=== PATIENT | male | born 1935 | race Caucasian/White ===

== ENCOUNTER 2018-07-02 17:33 | Observation (INO) ==
[2018-07-02] MEDS ORDERED: Ondansetron 4 MG/2 ML VIAL IVP PRN (20:31)
[2018-07-02] MEDS: *HR* Morphine Soln 10 MG/5 ML UDC PO PRN (22:10)
[2018-07-02] MEDS: 0.9 % Sodium Chloride 1,000 ML IVC SCH (22:12)
[2018-07-03] MEDS: cefOXitin 2,000 MG in Water for inj. (sterile) 20 ML 20 ML IVP SCH ×2 (00:13→08:00)
[2018-07-03] MEDS ORDERED: OXYCODONE Oral CONC 10 MG/0.5 ML ORAL.SYG SL PRN ×2 (00:29→13:52)
[2018-07-03] MEDS ORDERED: *HR* Metoprolol 5 MG/5 ML VIAL IVP ONE (00:30)
[2018-07-03] MEDS: *HR* Morphine Soln 10 MG/5 ML UDC PO PRN ×2 (02:14→06:48)
[2018-07-03 06:13] LABS: Basophils # 0.1 K/mcL (0.0-0.2); Basophils % 0.7 %; Eosinophils # 0.4 K/mcL (0.0-0.6); Eosinophils % 5.4 %; Hematocrit 42.2 % (37.5-50.1); Immature Granulocytes % 0.4 % (0-4); Lymphocytes % 26.1 %; Mean Corpuscular HGB Conc 33.2 g/dL (31.6-35.5); Mean Corpuscular Hemoglobin 28.3 pg (28.0-33.3); Mean Corpuscular Volume 85.4 fL (83.0-100.0); Mean Platelet Volume 8.8 fL (9.4-12.4); Monocytes # 0.8 K/mcL (0.0-1.3); Monocytes % 10.9 %; Neutrophils # 4.2 K/mcL (1.6-8.9); Platelet Count 227 K/mcL (140-400); Red Blood Count 4.94 M/mcL (4.19-5.50); Red Cell Distribution Width 14.9 % (11.5-14.5); Segmented Neutrophils % 56.5 %
[2018-07-03] MEDS: 0.9 % Sodium Chloride 1,000 ML IVC SCH ×2 (06:13→14:42)
[2018-07-03 06:33] LABS: Albumin 3.7 g/dL (3.5-5.7); Albumin/Globulin Ratio 1.7 (1.1-2.2); Bilirubin,Direct 0.1 mg/dL (0.0-0.2); Bilirubin,Total 1.1 mg/dL (0.3-1.0); Globulin 2.2 g/dL (2.4-3.5); Total Protein 5.9 g/dL (6.4-8.9)
--- NOTE | 2018-07-03 08:46 | General Surg History&Physical ---
<Roma Delatorre David - Last Filed: 07/03/18 11:59> Date of Encounter: 07/03/18 Assessment and Plan (1) Symptomatic cholelithiasis Current Visit: Yes Status: Acute The assessment and plan as outlined above was discussed with the patient and/or family members who expressed understanding and agreement. All questions were answered. patient wiht continued complaints of RUQ pain with radiation. Was discussed to see Dr Cornell on Thursday versus have gallbladder removed due to continued symptoms and continue with hiatal hernia repair with Dr Cornell in future. He would like to have gallbladder removed this weekend. npo cefoxitin prn pain control npo ivf hydration plan OR in next 24 hrs (2) HTN (hypertension) Current Visit: Yes Status: Acute The assessment and plan as outlined above was discussed with the patient and/or family members who expressed understanding and agreement. All questions were answered. continue home medication prn hydralazine Qualifiers: Hypertension type: essential hypertension Qualified Code(s): I10 - Essential (primary) hypertension History of Present Illness HPI: Mr. Mansfield is a 83 year old male with symptomatic cholelithiasis for several weeks. He has seen Dr Cornell as outpatient and was planning on having a cholecystectomy and hiatal hernia repair. He has been to the hospital three times in the last week due to his pain. His pain is sharp and across his upper abdomen and into his right side into his right back. He has no nausea or emesis associate with it, he has no diarrhea but is having constipation. He sometimes has worsening symptoms with food. Past Med Surg Social Fam HX - Past Medical History Source: patient - Social History Occupational status: retired Medications and Allergies Albuterol Sulfate [Albuterol Inhaler] 2 puff IH QID 01/01/18 [History] Aspirin [Adult Aspirin Regimen] 81 mg PO DAILY 01/01/18 [History] Calcium Carbonate [Calcium] 500 mg PO TID 01/01/18 [History] Cetirizine HCl [Zyrtec] 10 mg PO DAILY 01/01/18 [History] Cholecalciferol (Vitamin D3) [Vitamin D] 2,000 unit PO DAILY 01/01/18 [History] Esomeprazole Magnesium [Nexium] 40 mg PO DAILY 01/01/18 [History] Ezetimibe/Simvastatin [Vytorin 10-80 mg Tablet] 1 each PO DAILY 01/01/18 [ History] Ibandronate Sodium [Boniva] 150 mg PO QMONTH 01/01/18 [History] Nitroglycerin [Nitrostat] 0.4 mg SL PRN PRN 01/01/18 [History] Magnesium Oxide [Magnesium] 400 mg PO DAILY 06/27/18 [History] Metoclopramide [Reglan] 10 mg PO Q6HR #30 tablet 06/27/18 [Rx] Metoprolol Succinate/Hctz [Metoprolol ER-Hctz 25-12.5 mg] 1 each PO DAILY [History] Omeprazole [PriLOSEC] 20 mg PO BIDAC #30 cap 06/27/18 [Rx] Potassium Chloride [Klor-Con 10] 10 meq PO BID 06/27/18 [History] Tiotropium [Spiriva] 18 mcg IH 0700 06/27/18 [History] HYDROcodone/Acet 5/325 mg [[place] 5-325 mg] 1 tab PO Q6H PRN 5 Days #20 tab 07/01 [Rx] 3 Allergy/AdvReac Type Severity Reaction Status Date / Time No Known Allergies Allergy Verified 07/02/18 16:29 Review of Systems All systems PM: The remainder of the systems were reviewed and are negative General Surgery Exam Initial Vital Signs Temp Pulse Resp BP Pulse Ox 97.8 F 79 16 167/71 97 07/02/18 20:05 07/02/18 20:05 07/02/18 20:05 07/02/18 20:05 07/02/18 20:05 - General physical appearance well developed, no distress, moderate pain - Eyes PERRL, normal ocular movement - ENT normal mucosa, normocephalic - Neck trachea midline - Respiratory normal expansion, clear to auscultation - Cardiovascular Cardiovascular exam: Present: RRR - Abdomen Abdomen general surgery: Present: bowel sounds present, soft, tender. Absent: distended, guarding, rebound Abdominal Tenderness: Present: RUQ - Integumentary Integumentary general surgery: Present: warm and dry, no abnormal pigmentation - Neurologic Present: CN 2-12 grossly intact - Musculoskeletal Present: normal gait, normal posture - Psychiatric Psychiatric general surgery: Present: A&Ox3, speech is normal Results - Labs 07/03/18 05:58 Abnormal lab results RDW 14.9 % (11.5-14.5) H 07/03/18 05:58 MPV 8.8 fL (9.4-12.4) L 07/03/18 05:58 Total Bilirubin 1.1 mg/dL (0.3-1.0) H 07/03/18 05:58 B-Natriuretic Peptide 136 pg/mL (Less than 100) H 07/03/18 05:58 Serum Total Protein 5.9 g/dL (6.4-8.9) L 07/03/18 05:58 Globulin 2.2 g/dL (2.4-3.5) L 07/03/18 05:58 Diabetes panel 07/03/18 Range/Units 05:58 AST 19 (13-39) Units/L ALT 10 (7-52) Units/L Alkaline Phosphatase 59 (34-104) Units/L Albumin 3.7 (3.5-5.7) g/dL Calcium panel 07/03/18 Range/Units 05:58 Albumin 3.7 (3.5-5.7) g/dL Adrenal panel 07/03/18 Range/Units 05:58 Total Bilirubin 1.1 H (0.3-1.0) mg/dL AST 19 (13-39) Units/L ALT 10 (7-52) Units/L Alkaline Phosphatase 59 (34-104) Units/L Albumin 3.7 (3.5-5.7) g/dL All other labs normal. - Imaging CT scan - abdomen: report reviewed, image reviewed CT scan - pelvis: report reviewed, image reviewed - Attending Attestation I examined this patient and my medical decision-making was reviewed with the Resident Physician. I agree with the documented findings, disposition and treatment plan as described except to the extent set forth below. <Regla Candelaria - Last Filed: 07/03/18 12:09> Date of Encounter: 07/03/18 Time of Encounter: 08:43 Assessment and Plan (1) Cholelithiases Current Visit: Yes Status: Acute Previous ED visit with ADB/Pelvis CT CT/CT abd pelvis wo no iv no oral IMPRESSION: 1. No acute intra- abdominal process identified. 2. Cholelithiasis. 3. Moderate to large hiatal hernia. 4. Moderate atherosclerotic disease. D/ / Neri Wall MD / Neri Wall MD XR/XR abdomen 2V IMPRESSION: Cholelithiasis with a single large gallstone. Moderate sized hiatal hernia. Mild to moderate stool load. D/ / Loco Sommers MD / Loco Sommers MD Cholescystectomy today, hiatal hernia will need repaired at a seperate time. Discussed with patient the option to wait until Thursday to see if Dr. Cornell could do both at once but patient would like gallbladder out now and is ok with second surgery later. The assessment and plan as outlined above was discussed with the patient and/or family members who expressed understanding and agreement. All questions were answered. Qualifiers: Cholelithiasis location: gallbladder Cholecystitis presence: without cholecystitis Biliary obstruction: without biliary obstruction Qualified Code(s): K80.20 - Calculus of gallbladder without cholecystitis without obstruction History of Present Illness Chief complaint: Abdominal Pain HPI: Mr. Mansfield is a 83 year old male who presented to [place] ED with uncontrolled abdominal pain. HE had been previously seen on June 23 with large gallstone and moderate to large hiatal hernia. He had been scheduled for surgery on July 14 for cholecystectomy and hiatal hernia repair. He has persistent pain even with the use of Narco, states his pain was not helped by tylenol or ibuprophen but two aspirin did help some. HE states he has not had a bowel movement in 3 days and has had nausea/vomiting intermittently for the last few days. He denies any fever or chills. THis all began about 2 weeks ago, the pain is constant and sharp but the pain medications are helping now. When it is bad he says it is sharp and stabbing. THe pain goes across his chest and radiates to his back. Past Med Surg Social Fam HX - Past Medical History Medical history: asthma, COPD, hyperlipidemia, hypertension, myocardial infarction, other Additional medical history: prostate problems Psychiatric history: no psych history - Past Surgical History Additional surgical history: right foot surgery, prostate reduction - Social History Smoking Status: Former smoker Smokeless Tobacco Status: No Alcohol use: rarely Drug use: none Review of Systems All systems PM: The remainder of the systems were reviewed and are negative - Constitutional as per HPI - Cardiovascular chest pain (states this pain is all darci way across his chest and wraps around to his back which he associates with his hiatal hernia and gallstones. ), no diaphoresis, no irregular heart rhythm, no radiating jaw, neck or arm pain - Respiratory no cough, no dyspnea on exertion, no chest congestion - Gastrointestinal constipation, nausea, vomiting, no diarrhea - Genitourinary no urinary frequency, no urinary hesitancy, no urinary incontinence General Surgery Exam Initial Vital Signs Temp Pulse Resp BP Pulse Ox 97.8 F 79 16 167/71 97 07/02/18 20:05 07/02/18 20:05 07/02/18 20:05 07/02/18 20:05 07/02/18 20:05 - General physical appearance well developed, well nourished, moderate distress - ENT normal pinna, normal nares, normal mucosa - Neck no masses, trachea midline, no lymphadectomy - Respiratory normal expansion, normal respiratory effort, clear to auscultation - Cardiovascular Cardiovascular exam: Present: RRR, no murmurs/rubs/gallops - Abdomen Abdomen general surgery: Present: bowel sounds present, tender Abdominal Tenderness: Present: RUQ, LUQ - Musculoskeletal Present: normal posture - Psychiatric Psychiatric general surgery: Present: A&Ox3 Results - Labs 07/03/18 05:58 Abnormal lab results RDW 14.9 % (11.5-14.5) H 07/03/18 05:58 MPV 8.8 fL (9.4-12.4) L 07/03/18 05:58 Total Bilirubin 1.1 mg/dL (0.3-1.0) H 07/03/18 05:58 B-Natriuretic Peptide 136 pg/mL (Less than 100) H 07/03/18 05:58 Serum Total Protein 5.9 g/dL (6.4-8.9) L 07/03/18 05:58 Globulin 2.2 g/dL (2.4-3.5) L 07/03/18 05:58 Diabetes panel 07/03/18 Range/Units 05:58 AST 19 (13-39) Units/L ALT 10 (7-52) Units/L Alkaline Phosphatase 59 (34-104) Units/L Albumin 3.7 (3.5-5.7) g/dL Calcium panel 07/03/18 Range/Units 05:58 Albumin 3.7 (3.5-5.7) g/dL Adrenal panel 07/03/18 Range/Units 05:58 Total Bilirubin 1.1 H (0.3-1.0) mg/dL AST 19 (13-39) Units/L ALT 10 (7-52) Units/L Alkaline Phosphatase 59 (34-104) Units/L Albumin 3.7 (3.5-5.7) g/dL All other labs normal.
[2018-07-03] MEDS ORDERED: Loratadine 10 MG TABLET PO SCH (09:00)
[2018-07-03] MEDS ORDERED: hydroCHLOROthiazide 25 MG TABLET PO SCH (09:00)
[2018-07-03] MEDS ORDERED: 0.9 % Sodium Chloride 1,000 ML IVC SCH (09:15)
[2018-07-03] MEDS ORDERED: Tiotropium 18 MCG inhalation IH SCH (10:00)
--- NOTE | 2018-07-03 10:37 | Anesthesia Evaluation PreOp ---
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 Other Medical History: GERD Anesthesia History: No Prior Anesthetic Complications, Past Anesthesia Alcohol Use: rarely Drug use: none Medications and Allergies Albuterol Sulfate [Albuterol Inhaler] 2 puff IH QID 01/01/18 [History] Aspirin [Adult Aspirin Regimen] 81 mg PO DAILY 01/01/18 [History] Calcium Carbonate [Calcium] 500 mg PO TID 01/01/18 [History] Cetirizine HCl [Zyrtec] 10 mg PO DAILY 01/01/18 [History] Cholecalciferol (Vitamin D3) [Vitamin D] 2,000 unit PO DAILY 01/01/18 [History] Esomeprazole Magnesium [Nexium] 40 mg PO DAILY 01/01/18 [History] Ezetimibe/Simvastatin [Vytorin 10-80 mg Tablet] 1 each PO DAILY 01/01/18 [ History] Ibandronate Sodium [Boniva] 150 mg PO HS 01/01/18 [History] Nitroglycerin [Nitrostat] 0.4 mg SL PRN PRN 01/01/18 [History] Acetylcysteine [Nac] 500 mg PO DAILY 06/27/18 [History] Magnesium Oxide [Magnesium] 400 mg PO DAILY 06/27/18 [History] Metoclopramide [Reglan] 10 mg PO Q6HR #30 tablet 06/27/18 [Rx] Metoprolol Succinate/Hctz [Metoprolol ER-Hctz 25-12.5 mg] 1 each PO DAILY [History] Omeprazole [PriLOSEC] 20 mg PO BIDAC #30 cap 06/27/18 [Rx] Potassium Chloride [Klor-Con 10] 10 meq PO BID 06/27/18 [History] Tiotropium [Spiriva] 18 mcg IH 0700 06/27/18 [History] HYDROcodone/Acet 5/325 mg [[place] 5-325 mg] 1 tab PO Q6H PRN 5 Days #20 tab 07/01 [Rx] 3 Allergy/AdvReac Type Severity Reaction Status Date / Time No Known Allergies Allergy Verified 07/02/18 16:29 - Meds/Allergy Pre-op Review Medications Reviewed: Yes Allergies Reviewed: Yes Beta Blockers on Current Med List: Yes If Beta Blockers taken, Date/Time (Last Dose taken): 07/03/2018 at 0937 Anesthesia Results - Labs 07/03/18 05:58 - Imaging EKG: report reviewed (06/30/2018 SINUS RHYTHM RIGHT BUNDLE BRANCH BLOCK) Anesthesia Exam Vital Signs/O2 Sat/Glucose, Most Recent Temp Pulse Resp BP Pulse Ox 98.0 F 84 15 183/95 97 07/03/18 05:22 07/03/18 05:22 07/03/18 05:22 07/03/18 05:22 07/03/18 05:22 Blood Glucose* 90 Height: 6'/1.83m Weight: 178 lbs/81 kg NPO (# of Hours): 8 Pain Scale: 0 Pain Scale Used: Numeric (1 - 10) - HEENT Pupil (Motor): EOMI Mallampati: III Teeth: Poor dentition Oral Opening: Greater than 3 - LOCOMOTIVE CRANE OPERATOR HELPER LOC: Oriented LOCOMOTIVE CRANE OPERATOR HELPER Motor: Normal RUE, Normal LUE, Normal RLE, Normal LLE, Normal Face LOCOMOTIVE CRANE OPERATOR HELPER Sensory: Normal: RUE, LUE, RLE, LLE, Face - Cardiac Rhythm: Regular Murmur: None - Pulmonary Breath Sounds: bilateral Clear Respiratory Effort: Symmetrical Anesthesia Assess/Plan ASA Score: 3 Modified Nichelle Scale for Level of Consciousness: Cooperative, oriented, and tranquil Anesthetic Plan: General Monitoring Plan: Standard Monitors Recovery Plan: PACU
[2018-07-03] MEDS ORDERED: Isovue-300 50 ML VIAL IVP ONE (10:51)
[2018-07-03] MEDS ORDERED: Ringers Solution, Lactated 1,000 ML IVC SCH (11:30)
[2018-07-03] MEDS ORDERED: Albuterol 2.5 MG/3 ML NEBULIZER ONE (11:34)
[2018-07-03] MEDS ORDERED: *HR* FentaNYL (PF) 100 MCG/2 ML VIAL ONE ×2 (12:07→12:30)
[2018-07-03] MEDS ORDERED: *HR* Succinylcholine 200 MG/10 ML VIAL IVP ONE (12:07)
[2018-07-03] MEDS ORDERED: Lidocaine -MPF 2% 2 ML VIAL ONE (12:07)
[2018-07-03] MEDS ORDERED: *HR* Rocuronium Bromide 50 MG/5 ML VIAL ONE (12:07)
[2018-07-03] MEDS ORDERED: *HR* Propofol 200 MG/20 ML VIAL IVP ONE (12:07)
[2018-07-03] MEDS ORDERED: Dexamethasone 4 MG/ML VIAL ONE (12:08)
[2018-07-03] MEDS ORDERED: Ondansetron 4 MG/2 ML VIAL ONE (12:08)
[2018-07-03] MEDS ORDERED: EPHEDrine 50 MG/ML VIAL ONE (12:09)
[2018-07-03] MEDS ORDERED: *HR* Morphine 2 MG/ML SYRINGE IVP PRN (12:14)
[2018-07-03] MEDS ORDERED: Acetaminophen IV 1,000 MG/100 ML INFUS..BTL IVPB ONE (12:14)
[2018-07-03] MEDS ORDERED: Ondansetron 4 MG/2 ML VIAL IVP ONE (12:14)
[2018-07-03] MEDS ORDERED: *HR* Promethazine 25 MG/ML VIAL IVP PRN (12:14)
[2018-07-03] MEDS ORDERED: Neostigmine Methylsulfate 3 MG/3 ML SYRINGE ONE (12:30)
--- NOTE | 2018-07-03 12:56 | Discharge Summary ---
Orders not resulted at time of discharge: Pending orders 07/03/18 XR cholangiogram operative [XR] Routine 07/03/18 05:00 ECG 12 lead ECG [ECG] Routine Date of Encounter: 07/04/18 Time of Encounter: 12:00 - Discharge Diagnosis (1) Symptomatic cholelithiasis Priority: Secondary Status: Acute (2) HTN (hypertension) Priority: Secondary Status: Acute Qualifiers: Hypertension type: essential hypertension Qualified Code(s): I10 - Essential (primary) hypertension (3) Acute cholecystitis Priority: Primary Status: Acute General Surgery Exam Initial Vital Signs Temp Pulse Resp BP Pulse Ox 97.8 F 79 16 167/71 97 07/02/18 20:05 07/02/18 20:05 07/02/18 20:05 07/02/18 20:05 07/02/18 20:05 - General physical appearance well developed, no distress - Eyes PERRL, normal ocular movement - ENT normal mucosa, normocephalic - Neck trachea midline - Respiratory normal expansion, clear to auscultation - Cardiovascular Cardiovascular exam: Present: RRR - Abdomen Abdomen general surgery: Present: bowel sounds present, soft, tender ( appropriate post op tenderness). Absent: guarding, rebound - Incision Incision: Present: clean and dry, intact - Integumentary Integumentary general surgery: Present: warm and dry, no abnormal pigmentation - Neurologic Present: CN 2-12 grossly intact - Musculoskeletal Present: normal gait, normal posture - Psychiatric Psychiatric general surgery: Present: A&Ox3, speech is normal - Hospital Course Hospital course: Mr. Mansfield is a 83 year old male who had been having symptomatic cholelithiasis for several weeks. Patient had been in the ER 3 times in the last week. He presented with continued and persistent epigastric right upper quadrant pain which radiated to his back and shoulder. He elected to have a laparoscopic cholecystectomy this week and with myself. He is planning on having a hiatal hernia repair with Dr. Pruett in the future. Patient actually had an acute cholecystitis with significant edema of the gallbladder wall. He underwent an uncomplicated laparoscopic cholecystectomy on 2017. He was started on a clear diet which she tolerated. Pain was controlled with by mouth medication. He was discharged home in stable condition. - Time Spent with Patient Total time spent providing and/or coordinating discharge services: - Discharge Medications Prescriptions: OxyCODONE/APAP 5/325 [Percocet 5/325 MG] 1 each PO Q6HR PRN 6 Days #25 tablet PRN Reason: Pain Docusate [Colace] 100 mg PO BID #30 capsule Home Medications: Albuterol Sulfate [Albuterol Inhaler] 2 puff IH QID 01/01/18 [History] Aspirin [Adult Aspirin Regimen] 81 mg PO DAILY 01/01/18 [History] Calcium Carbonate [Calcium] 500 mg PO TID 01/01/18 [History] Cetirizine HCl [Zyrtec] 10 mg PO DAILY 01/01/18 [History] Cholecalciferol (Vitamin D3) [Vitamin D3] 2,000 unit PO DAILY 01/01/18 [History] Esomeprazole Magnesium [Nexium] 40 mg PO DAILY 01/01/18 [History] Ezetimibe/Simvastatin [Vytorin 10-80 mg Tablet] 1 each PO DAILY 01/01/18 [ History] Ibandronate Sodium [Boniva] 150 mg PO QMONTH 01/01/18 [History] Nitroglycerin [Nitrostat] 0.4 mg SL PRN PRN 01/01/18 [History] Magnesium Oxide [Magnesium] 400 mg PO DAILY 06/27/18 [History] Metoclopramide [Reglan] 10 mg PO Q6HR #30 tablet 06/27/18 [Rx] Metoprolol Succinate/Hctz [Metoprolol ER-Hctz 25-12.5 mg] 1 each PO DAILY [History] Omeprazole [PriLOSEC] 20 mg PO BIDAC #30 cap 06/27/18 [Rx] Potassium Chloride [Klor-Con 10] 10 meq PO BID 06/27/18 [History] Tiotropium [Spiriva] 18 mcg IH 0700 06/27/18 [History] HYDROcodone/Acet 5/325 mg [[place] 5-325 mg] 1 tab PO Q6H PRN 5 Days #20 tab 07/01 [Rx] Docusate [Colace] 100 mg PO BID #30 capsule 07/03/18 [Rx] OxyCODONE/APAP 5/325 [Percocet 5/325 MG] 1 each PO Q6HR PRN 6 Days #25 tablet [Rx] Allergies/Adverse Reactions: 3 Allergy/AdvReac Type Severity Reaction Status Date / Time No Known Allergies Allergy Verified 07/02/18 16:29 Date of admission: 07/02/18 19:39 Primary care physician: Pushpa Gambino MD Discharging clinician: Roma Delatorre Anticipated date of discharge: 07/04/18 Labs on day of discharge: Labs from last 24 hours 07/03/18 07/03/18 07/03/18 05:58 05:58 05:58 WBC 7.5 RBC 4.94 Hgb 14.0 Hct 42.2 MCV 85.4 MCH 28.3 MCHC 33.2 RDW 14.9 H Plt Count 227 MPV 8.8 L Immature Gran % 0.4 Seg Neutrophils % 56.5 Lymphocytes % 26.1 Monocytes % 10.9 Eosinophils % 5.4 Basophils % 0.7 Neutrophils # 4.2 Lymphocytes # 2.0 Monocytes # 0.8 Eosinophils # 0.4 Basophils # 0.1 POC Glucose Total Bilirubin 1.1 H Direct Bilirubin 0.1 Indirect Bilirubin 1.0 AST 19 ALT 10 Alkaline Phosphatase 59 B-Natriuretic Peptide 136 H Serum Total Protein 5.9 L Albumin 3.7 Globulin 2.2 L Albumin/Globulin Ratio 1.7 07/03/18 05:09 WBC RBC Hgb Hct MCV MCH MCHC RDW Plt Count MPV Immature Gran % Seg Neutrophils % Lymphocytes % Monocytes % Eosinophils % Basophils % Neutrophils # Lymphocytes # Monocytes # Eosinophils # Basophils # POC Glucose 90 Total Bilirubin Direct Bilirubin Indirect Bilirubin AST ALT Alkaline Phosphatase B-Natriuretic Peptide Serum Total Protein Albumin Globulin Albumin/Globulin Ratio - Patient Status Disposition: Home, Self-Care Condition: Good Overall status at discharge: patient is progressing back to baseline - Discharge Instructions Instructions: Laparoscopic Cholecystectomy (DC) Follow Up With: Pushpa Gambino MD [Primary Care Provider] - Roma Delatorre MD [Partnered Physician] - (2 week post op check) Additional Instructions: No lifting more than 20 pounds for 2 weeks. Okay to take a shower in 24 hours. No tub baths or pools for 1 week. Okay to ride in the car wearing a seatbelt and climb steps. No driving until off narcotics for 24 hours and able to react safely Remove Steri-Strips in 1 week Do not take pain medicine/narcotics on an empty stomach it will likely cause nausea and possibly vomiting. If pain medication is too strong okay to break in half - Diet and Activity Activity: increase activity as tolerated Diet: advance to your usual diet
--- NOTE | 2018-07-03 13:41 | Anesthesia Evaluation Post Op ---
Date of Encounter: 07/03/18 Time of Encounter: 13:40 - Vital Signs Vital Signs: Vital Signs/O2 Sat, Most Current Temp Pulse Resp BP Pulse Ox 97.6 F 83 16 150/72 96 07/03/18 13:31 07/03/18 13:31 07/03/18 13:31 07/03/18 13:31 07/03/18 13:31 - Lungs Lungs: Clear Ascult./Percussion - Airway Airway: Non-obstructed - Cardiovascular Regular Rate - Mental Status Mental Status: Alert & Oriented, Answers Appropriately - Pain Pain Scale: 3 Pain Scale used: Numeric (1 - 10) - Nausea Vomiting Nausea Vomiting: Not Present - Hydration Hydration: NPO, Has not voided - Discharge PostOp Status: Transfer Patient to floor
[2018-07-03] MEDS ORDERED: Ondansetron 4 MG/2 ML VIAL IVP PRN (13:52)
[2018-07-03] MEDS ORDERED: *HR* OxyCODONE/APAP 5/325 TABLET PO PRN (13:52)
--- NOTE | 2018-07-03 16:01 | Operative Note ---
Date of procedure: 07/03/18 Pre-op diagnosis: symptomatic cholelithiasis Post-op diagnosis: other (Acute cholecystitis) Procedure: Laparoscopic cholecystectomy Complications: none immediate Anesthesia: GETA, local Local Anesthetics: 0.5% Sensorcaine HCL SubQ (cc) Surgeon: Roma Delatorre Was there an special education teaching assistant present: Yes Cardiopulmonary Specialist: Brooke Ramirez Estimated blood loss (cc): 5 Specimen: gallbladder and contents Condition: stable Disposition: PACU Procedure in Detail: The patient was brought into the operating suite and placed supine on the operating table. Sign-in was performed and everyone was in agreement. Anesthesia was induced and patient was endotracheally intubated by anesthesia without incident and they also placed an OG tube. The abdomen was prepped and draped in the usual sterile fashion. A timeout was performed again everyone was in agreement. A supraumbilical incision was made through the skin into the subcutaneous tissue with an 11 blade. Towel clamps were placed on either side of the umbilicus for retraction. S retractors were used to dissect down to the anterior abdominal wall linea alba fascia. A Veress needle was placed through this incision and a water drop test confirmed placement and the abdomen was insufflated. The abdomen was entered with a 5 mm 0 degree laparoscope on a 5 mm X-melodie trocar. The area and entry was visualized was no bleeding and no apparent bowel injury. A 5 mm subxiphoid port was placed under direct visualization after first incising the skin with an 11 blade. A right upper quadrant subcostal position midclavicular line 5 mm port was placed under direct visualization after first incising skin with 11 blade. The laparoscope was placed in this and we exchanged the supraumbilical port for a 12 mm port under direct visualization. The last 5 mm port was placed in the right upper quadrant subcostal position anterior axillary line after first incising the skin with an 11 blade. The patient was placed in steep reverse Trendelenburg left side down position. The dome of the gallbladder was grasped and retracted cephalad. Omental adhesions to the body and infundibulum of the gallbladder were taken down bluntly with the [place]. The infundibulum was grasped and retracted laterally. Using the [place] we dissected out the cystic duct and cystic artery. Three 5 mm hemoclips were placed distally on the cystic duct one proximally and it was transected with curved scissors. The cystic artery was doubly clipped proximally, once distally and transected with curved scissors. The gallbladder was removed off the cystic plate with the Bovie. Any bleeding points were stopped with the Bovie. The gallbladder was placed in a laparoscopic Endo Catch bag and removed via the supraumbilical incision site. The inferior edge of the liver was bluntly retracted cephalad and the cystic plate was copiously irrigated with sterile saline. There was no bleeding or apparent bile leak from the cystic plate and the clips on the cystic artery and duct were intact. All irrigation was suctioned free from the abdomen. All insufflation was suctioned free from the abdomen and the ports removed. The abdominal wall at the supraumbilical incision site was closed with a 0 Vicryl [id number] stitch. 30 mL of 0.5% Marcaine was injected subcutaneously at the 4 port sites. The skin at the three 5 mm port sites were closed with 4-0 Monocryl interrupted subcuticular stitches. The skin at the supraumbilical incision site was closed with a 4-0 Monocryl running subcuticular stitch. Steri -Strips were applied to all wounds. The patient was awoken in the operating suite having tolerated the procedure well and were taken to PACU in stable condition after all lap and instrument counts were correct at the end of the case.
[2018-07-04 00:57] LABS: Basophils % 0.1 %; Eosinophils % 0.1 %; Hematocrit 41.4 % (37.5-50.1); Hemoglobin 13.6 g/dL (12.9-16.9); Immature Granulocytes % 0.2 % (0-4); Lymphocytes # 1.3 K/mcL (0.6-4.6); Lymphocytes % 15.2 %; Mean Corpuscular HGB Conc 32.9 g/dL (31.6-35.5); Mean Corpuscular Hemoglobin 27.7 pg (28.0-33.3); Mean Corpuscular Volume 84.3 fL (83.0-100.0); Mean Platelet Volume 8.7 fL (9.4-12.4); Monocytes # 0.7 K/mcL (0.0-1.3); Monocytes % 8.1 %; Neutrophils # 6.5 K/mcL (1.6-8.9); Platelet Count 238 K/mcL (140-400); Red Blood Count 4.91 M/mcL (4.19-5.50); Red Cell Distribution Width 15.4 % (11.5-14.5); Segmented Neutrophils % 76.3 %
[2018-07-04 01:24] LABS: Albumin 3.6 g/dL (3.5-5.7); Albumin/Globulin Ratio 1.5 (1.1-2.2); Bilirubin,Direct 0.2 mg/dL (0.0-0.2); Bilirubin,Indirect 0.8 mg/dL (0.0-1.2); Globulin 2.4 g/dL (2.4-3.5)
[2018-07-04] MEDS: 0.9 % Sodium Chloride 1,000 ML IVC SCH (05:49)
--- NOTE | 2018-07-04 08:29 | Discharge Summary ---
Orders not resulted at time of discharge: Pending orders 07/03/18 05:00 ECG 12 lead ECG [ECG] Routine 07/03/18 12:55 Surgical Pathology [PTH] Routine Date of Encounter: 07/04/18 Time of Encounter: 08:28 - Discharge Diagnosis (1) Cholelithiases Priority: Primary Status: Acute Comments: Date of procedure: 07/03/18 Pre-op diagnosis: symptomatic cholelithiasis Post-op diagnosis: other (Acute cholecystitis) Procedure: Laparoscopic cholecystectomy Complications: none immediate Anesthesia: GETA, local Local Anesthetics: 0.5% Sensorcaine HCL SubQ (cc) Surgeon: Roma Delatorre Patient tolerated well No complications Qualifiers: Cholelithiasis location: gallbladder Cholecystitis presence: without cholecystitis Biliary obstruction: without biliary obstruction Qualified Code(s): K80.20 - Calculus of gallbladder without cholecystitis without obstruction General Surgery Exam Initial Vital Signs Temp Pulse Resp BP Pulse Ox 97.8 F 79 16 167/71 97 07/02/18 20:05 07/02/18 20:05 07/02/18 20:05 07/02/18 20:05 07/02/18 20:05 - General physical appearance well developed, well nourished, no distress - Respiratory normal expansion, normal respiratory effort, clear to auscultation - Cardiovascular Cardiovascular exam: Present: RRR, no murmurs/rubs/gallops - Abdomen Abdomen general surgery: Present: bowel sounds present, soft, non tender - Incision Incision: Present: clean and dry, intact - Integumentary Integumentary general surgery: Present: warm and dry, no abnormal pigmentation - Musculoskeletal Present: normal posture - Psychiatric Psychiatric general surgery: Present: oriented to person, oriented to place, oriented to time - Hospital Course Hospital course: Mr. Mansfield is a 83 year old male who presented to ED three times for abdominal pain. HE has had symptomatic cholelithiasis for several weeks. He has seen Dr. Cornell as outpatient and was planning on cholecystectomy and hiatal hernia repair. He was given the option to wait until Thursday to speak with Dr. Cornell or to have laproscopic cholecystectomy without hiatal hernia repair and follow up with Dr. Cornell for his hiatal hernia. Patient decided to have laproscopic colecystectomy without hital hernia repair. PAtient tolerated surgery well, is tolerating a regular diet and says his pain has substantially decreased. - Time Spent with Patient Total time spent providing and/or coordinating discharge services: - Discharge Medications Prescriptions: OxyCODONE/APAP 5/325 [Percocet 5/325 MG] 1 each PO Q6HR PRN 6 Days #25 tablet PRN Reason: Pain Docusate [Colace] 100 mg PO BID #30 capsule Home Medications: Albuterol Sulfate [Albuterol Inhaler] 2 puff IH QID 01/01/18 [History] Aspirin [Adult Aspirin Regimen] 81 mg PO DAILY 01/01/18 [History] Calcium Carbonate [Calcium] 500 mg PO TID 01/01/18 [History] Cetirizine HCl [Zyrtec] 10 mg PO DAILY 01/01/18 [History] Cholecalciferol (Vitamin D3) [Vitamin D3] 2,000 unit PO DAILY 01/01/18 [History] Esomeprazole Magnesium [Nexium] 40 mg PO DAILY 01/01/18 [History] Ezetimibe/Simvastatin [Vytorin 10-80 mg Tablet] 1 each PO DAILY 01/01/18 [ History] Ibandronate Sodium [Boniva] 150 mg PO QMONTH 01/01/18 [History] Nitroglycerin [Nitrostat] 0.4 mg SL PRN PRN 01/01/18 [History] Magnesium Oxide [Magnesium] 400 mg PO DAILY 06/27/18 [History] Metoclopramide [Reglan] 10 mg PO Q6HR #30 tablet 06/27/18 [Rx] Metoprolol Succinate/Hctz [Metoprolol ER-Hctz 25-12.5 mg] 1 each PO DAILY [History] Omeprazole [PriLOSEC] 20 mg PO BIDAC #30 cap 06/27/18 [Rx] Potassium Chloride [Klor-Con 10] 10 meq PO BID 06/27/18 [History] Tiotropium [Spiriva] 18 mcg IH 0700 06/27/18 [History] HYDROcodone/Acet 5/325 mg [[place] 5-325 mg] 1 tab PO Q6H PRN 5 Days #20 tab 07/01 [Rx] Docusate [Colace] 100 mg PO BID #30 capsule 07/03/18 [Rx] OxyCODONE/APAP 5/325 [Percocet 5/325 MG] 1 each PO Q6HR PRN 6 Days #25 tablet [Rx] Allergies/Adverse Reactions: 3 Allergy/AdvReac Type Severity Reaction Status Date / Time No Known Allergies Allergy Verified 07/02/18 16:29 Date of admission: 07/02/18 19:39 Primary care physician: Pushpa Gambino MD Discharging clinician: Roma Delatorre Anticipated date of discharge: 07/04/18 Labs on day of discharge: Labs from last 24 hours 07/04/18 07/04/18 00:42 00:42 WBC 8.6 RBC 4.91 Hgb 13.6 Hct 41.4 MCV 84.3 MCH 27.7 L MCHC 32.9 RDW 15.4 H Plt Count 238 MPV 8.7 L Immature Gran % 0.2 Seg Neutrophils % 76.3 Lymphocytes % 15.2 Monocytes % 8.1 Eosinophils % 0.1 Basophils % 0.1 Neutrophils # 6.5 Lymphocytes # 1.3 Monocytes # 0.7 Eosinophils # 0.0 Basophils # 0.0 Total Bilirubin 1.0 Direct Bilirubin 0.2 Indirect Bilirubin 0.8 AST 69 H ALT 37 Alkaline Phosphatase 57 Serum Total Protein 6.0 L Albumin 3.6 Globulin 2.4 Albumin/Globulin Ratio 1.5 - Patient Status Disposition: Home, Self-Care Condition: Good - Discharge Instructions Instructions: Laparoscopic Cholecystectomy (DC) Follow Up With: Roma Delatorre MD [Partnered Physician] - (2 week post op check) Pushpa Gambino MD [Primary Care Provider] - Additional Instructions: No lifting more than 20 pounds for 2 weeks. Okay to take a shower in 24 hours. No tub baths or pools for 1 week. Okay to ride in the car wearing a seatbelt and climb steps. No driving until off narcotics for 24 hours and able to react safely Remove Steri-Strips in 1 week Do not take pain medicine/narcotics on an empty stomach it will likely cause nausea and possibly vomiting. If pain medication is too strong okay to break in half - Diet and Activity Activity: resume usual activities as tolerated Diet: advance to your usual diet
[2018-07-04] MEDS ORDERED: hydroCHLOROthiazide 25 MG TABLET PO SCH (09:00)
[2018-07-04] MEDS ORDERED: Loratadine 10 MG TABLET PO SCH (09:00)
[2018-07-04] MEDS ORDERED: Tiotropium 18 MCG inhalation IH SCH (10:00)
[2018-07-04 11:12] VITALS: BP 121/71
--- NOTE | 2018-07-05 12:39 | Electrocardiograph Report ---
[address] [place], [place] [address] Test Date: 2018-07-03 Pat Name: Rodríguez Mansfield Department: 115 Room: 3A33 Gender: M [employer]: [id number] : [id number] Requested By: Roma Delatorre Order Number: [id number] Reading MD: Hill Hernandes Measurements Intervals [place] Rate: 81 P: 60 [place]: 222 QRS: -51 QRSD: 138 T: 28 QT: 402 QTc: 440 Interpretive Statements SINUS RHYTHM WITH FIRST DEGREE AV BLOCK WITH OCCASIONAL VENTRICULAR PREMATURE COMPLEXES INDETERMINATE AXIS BASELINE ARTIFACT RIGHT BUNDLE BRANCH BLOCK LEFT ANTERIOR FASCICULAR BLOCK Electronically Signed On 07-05-2018 12:37:56 EDT by Hill Hernandes
== END 2018-07-04 12:55 | disposition home or self-care (01) ==
LOC: 3ANU
PROVIDERS: ADMIT Surgery; ATTEND Surgery

== ENCOUNTER 2018-08-23 17:07 | Inpatient (IN) ==
[2018-08-23] MEDS ORDERED: Naloxone 0.4 MG/ML INJ IVP PRN (20:41)
--- NOTE | 2018-08-23 20:59 | Internal Med History&Physical ---
Date of Encounter: 08/24/18 Time of Encounter: 20:57 Internal Medicine - H&P: HPI Chief complaint: SBO History of present illness: Mr. Mansfield is a 83 year old male with a past medical history of hypertension, cholecystectomy (07/10), and recent abdominal hernia repair and nisin fundoplication on July [address] Cornell who presented to [facility] due to diffuse abdominal pain and dry heaves. Patient states that around 7 PM yesterday he had he was having dinner with potatoes and pork. He states that 2 hours afterwards he felt like he was having a "gallbladder attack", though he is quite aware he had his gallbladder removed. He states the pain was in the lower abdomen and radiating across the lower abdomen. 7 out of 10 in intensity. This patient had difficulty trying to find a comfortable position. Symptoms were associated with dry heaves which continued on into today. No reports of vomiting except for spitting up mucus. He states he has not had a bowel movement since yesterday and the last time he reported passing gas was yesterday afternoon. Patient to trial all around 3 PM today which she said seemed to help. Denies any fever, chills, chest pain or shortness of breath. Patient had CT of the abdomen performed at [place] which showed small bowel obstruction with mild to moderate ascites. Lab workup was notable for an elevated white blood cell count 13.1, creatinine of 1.43. A NG tube was attempted unsuccessfully. Patient was subsequently transferred to [place]. Past Med Surg Social Fam HX - Past Medical History Medical history: asthma, COPD, hyperlipidemia, hypertension, myocardial infarction, other Additional medical history: prostate problems Psychiatric history: no psych history - Past Surgical History Surgical History: cholecystectomy, other Additional surgical history: right foot surgery, prostate reduction. 07/10/18 LIBAN. 07/14/18 LAP MARLEN FUNDOPLICATION @[place] W/DR CORNELL - Social History Smoking Status: Never smoker Smokeless Tobacco Status: No Alcohol use: rarely Drug use: none Internal Medicine - H&P: Meds Albuterol Sulfate [Albuterol Inhaler] 2 puff IH QID PRN 01/01/18 [History] Aspirin [Adult Aspirin Regimen] 81 mg PO DAILY 01/01/18 [History] Calcium Carbonate [Calcium] 500 mg PO TID 01/01/18 [History] Cetirizine HCl [Zyrtec] 10 mg PO DAILY 01/01/18 [History] Cholecalciferol (Vitamin D3) [Vitamin D3] 2,000 unit PO DAILY 01/01/18 [History] Ezetimibe/Simvastatin [Vytorin 10-80 mg Tablet] 1 tab PO DAILY 01/01/18 [History ] Ibandronate Sodium [Boniva] 150 mg PO QMONTH 01/01/18 [History] Nitroglycerin [Nitrostat] 0.4 mg SL Q5M PRN 01/01/18 [History] Magnesium Oxide [Magnesium] 400 mg PO DAILY 06/27/18 [History] Omeprazole [PriLOSEC] 20 mg PO BIDAC #30 cap 06/27/18 [Rx] Potassium Chloride [Klor-Con 10] 10 meq PO BID 06/27/18 [History] Tiotropium [Spiriva] 18 mcg IH 0700 06/27/18 [History] Montelukast [Singulair] 10 mg PO DAILY 07/04/18 [History] Tamsulosin HCl [Flomax] 0.4 mg PO DAILY 07/04/18 [History] Docusate [Colace] 100 mg PO BID PRN #30 capsule 07/14/18 [Rx] Ibuprofen [Ibu] 600 mg PO TID #40 tablet 07/14/18 [Rx] Metoprolol [Lopressor] 25 mg PO BID 07/14/18 [History] Ondansetron ODT [Zofran ODT] 4 mg SL Q6HR PRN #30 tab.rapdis 07/14/18 [Rx] OxyCODONE/APAP 5/325 [Percocet 5/325 MG] 1 each PO Q6HR PRN 5 Days #20 tablet [Rx] 3 Allergy/AdvReac Type Severity Reaction Status Date / Time No Known Allergies Allergy Verified 07/02/18 16:29 All Systems PM: A 10-system review of systems was performed and is negative for pertinent findings except as documented above in the HPI. - Constitutional Constitutional: no chills, no fever(s), no night sweats - EENT Eyes: no change in vision, no discharge, no pain, no photophobia Ears: no ear discharge, no ear pain, no tinnitus Nose, mouth and throat: no dysphagia, no nasal discharge, no neck pain, no sore throat - Cardiovascular Cardiovascular ROS IM: no chest pain, no diaphoresis, no dyspnea, no lightheadedness, no palpitations, no syncope - Respiratory Respiratory: no cough, no dyspnea, no wheezing, no excessive phlegm production - Gastrointestinal Gastrointestinal: no abdominal pain, no diarrhea, no hematemesis, no hematochezia, no melena, no nausea, no vomiting - Musculoskeletal Musculoskeletal ROS IM: no numbness, no tingling - Integumentary Integumentary IM: no rash, no unusual bruising - Neurological Neurological ROS: no confusion, no convulsions, no focal weakness, no numbness, no tingling, no tremor(s) - Hematologic/Lymphatic Hematologic/Lymphatic: no easy bruising - Constitutional Vitals: Temp Pulse Resp BP Pulse Ox 98 F 94 18 142/89 95 08/23/18 19:34 08/23/18 19:34 08/23/18 19:34 08/23/18 19:34 08/23/18 19:34 Exam: General: Alert and oriented 3 summer: Lying in bed in no acute distress Skin:Normal color, no rash, no lesions. HEENT:EOM, pupils equal, round and reactive. Cardiovascular:Normal S1 & S2, no rubs, murmurs or gallops. No JVD. Pulse regular. Lungs:Normal breath sounds, no wheezes or crackles. Abdomen:Soft, tender to palpation in the right upper quadrant and across the lower abdomen. Hypoactive bowel sounds. No rebound or guarding noted. Extremities:No deformity, no edema or tenderness, no joint swelling or clubbing. Neurological:Normal cognition and motor skills. Pulses:Carotid and radial pulses normal +2. Rest of the physical exam is non contributory Internal Med - H&P Results - Labs CBC & Chem 7: 08/24/18 07:10 - Assessment and plan (1) Small bowel obstruction Current Visit: No Status: Inactive Assessment and plan: Abdominal pain with dry heaves and hypoactive bowel sounds likely secondary to small bowel obstruction in the setting of recent cholecystectomy and hiatal hernia repair with nisin fundoplication in June. CT of the abdomen and pelvis without contrast showed right mid abdominal mid to distal jejunal small bowel obstruction as well as mild to moderate ascites. No significant biliary dilatation or gallbladder fossa abnormality. Patient was unable to maintain NG tube. He continues to have dry heaves spitting up mucus. Abdominal pain currently 6 out of 10. (2) Ascites Current Visit: Yes Status: Acute Assessment and plan: Findings of mild to moderate ascites on CT scan without contrast. Patient has no evidence of abdominal distention or alcohol history. Consider repeat CT scan with contrast versus abdominal ultrasound. Qualifiers: Ascites type: other type Qualified Code(s): R18.8 - Other ascites (3) Leukocytosis, unspecified Current Visit: Yes Status: Acute Assessment and plan: Elevated white blood cell count of 13.1. No evidence of fever. May be stress- induced in the setting of small bowel obstruction. Repeat labs in the morning. Qualifiers: Leukocytosis type: unspecified Qualified Code(s): D72.829 - Elevated white blood cell count, unspecified (4) HTN (hypertension) Current Visit: No Status: Chronic Assessment and plan: Blood pressure stable. We will continue with hydralazine 5 mg IV push every 6 when necessary. Qualifiers: Hypertension type: essential hypertension Qualified Code(s): I10 - Essential (primary) hypertension (5) Asthma Current Visit: Yes Status: Acute Assessment and plan: Continue home inhalers. Qualifiers: Asthma severity: unspecified severity Asthma persistence: unspecified Asthma complication type: unspecified Qualified Code(s): J45.909 - Unspecified asthma, uncomplicated (6) DVT prophylaxis Current Visit: Yes Status: Acute Assessment and plan: Subcutaneous heparin. - Time Spent With Patient Total time spent is greater than 50% in coordination of care (as documented) at patient's floor/unit and/or counseling patient:
[2018-08-23] MEDS ORDERED: OXYCODONE Oral CONC 10 MG/0.5 ML ORAL.SYG SL PRN (21:12)
[2018-08-23] MEDS: 0.9 % Sodium Chloride 1,000 ML IVC SCH (22:17)
[2018-08-23] MEDS: Ondansetron 4 MG/2 ML VIAL IVP SCH (23:52)
[2018-08-23] MEDS: *HR* Heparin 5,000 UNIT/ML VIAL SQ SCH (23:52)
[2018-08-24] MEDS: Ondansetron 4 MG/2 ML VIAL IVP SCH ×4 (05:21→23:04)
[2018-08-24 06:21] LABS: INR 0.9; Prothrombin Time 10.3 Seconds (9.4-12.1)
[2018-08-24 07:49] LABS: Basophils % 0.1 %; Hematocrit 45.7 % (37.5-50.1); Immature Granulocytes % 0.1 % (0-4); Lymphocytes # 0.7 K/mcL (0.6-4.6); Lymphocytes % 9.5 %; Mean Corpuscular HGB Conc 33.5 g/dL (31.6-35.5); Mean Corpuscular Hemoglobin 27.4 pg (28.0-33.3); Mean Corpuscular Volume 81.9 fL (83.0-100.0); Monocytes # 0.8 K/mcL (0.0-1.3); Neutrophils # 6.2 K/mcL (1.6-8.9); Platelet Count 324 K/mcL (140-400); Red Blood Count 5.58 M/mcL (4.19-5.50); Red Cell Distribution Width 16.2 % (11.5-14.5); Segmented Neutrophils % 80.3 %
[2018-08-24] MEDS: *HR* Heparin 5,000 UNIT/ML VIAL SQ SCH ×3 (07:50→23:04)
[2018-08-24 08:14] LABS: Hemoglobin 15.3 g/dL (12.9-16.9)
--- NOTE | 2018-08-24 09:37 | General Surgery Consult Note ---
Date of Encounter: 08/24/18 Time of Encounter: 09:37 Assessment and Plan (1) Small bowel obstruction Current Visit: Yes Status: Acute Attempted to place NG tube. Met with significant resistance at the GE junction. I did leave the NG tube in place and obtained a KUB which confirmed suspicions. The tip is at the GE junction but does not pass through. We will attempt to advance the NG under fluoroscopy today at approximately [address] of the abdomen and pelvis without contrast was completed on 08/23/2018 findings are consistent with a right mid abdominal mid to distal J juvenile small bowel obstruction, no perforation or abscess, mild to moderate ascites (likely reactionary) Gabe fundoplication is intact, cholecystectomy site is with out any significant abnormality. Plan: NPO NG to low intermittent wall suction; will attempt to advance under fluroscopy may have a limited ice chips for comfort Chloraseptic and biotene at bedside for comfort PRN antiemetics serial abdominal exams bowel rest repeat a.m. labs (2) Tachycardia Current Visit: Yes Status: Acute EKG; NPO-scheduled and prn meds per IV per primary team Place patient on telemetry (3) Vomiting Current Visit: Yes Status: Acute see s/p above Qualifiers: Vomiting type: bilious vomiting Nausea presence: with nausea Qualified Code(s): R11.14 - Bilious vomiting (4) Status post Gabe fundoplication Current Visit: Yes Status: Chronic see a/p above (5) Ascites Current Visit: Yes Status: Acute likely reactionary. will continue to monitor Qualifiers: Ascites type: other type Qualified Code(s): R18.8 - Other ascites History of Present Illness Consult date: 08/24/18 (Dr. Mary Delatorre) Reason for consult: abdominal pain Requesting physician: Keila Byrd History of present illness: Rodríguez Mansfield is an 89 year old male who is known to [facility]. He underwent a uncomplicated urgent laparoscopic cholecystectomy by Dr. Delatorre on 07/03/2018 and uncomplicated robotic hiatal hernia repair and Gabe fundoplication on 07/[address] Mcclain. Pt repors shortly after his Gabe he was treated at [facility] for constipation, but otherwise had no complaints since his procedures. He was seen in follow-up by Kiya Mcclain/[facility] on 07/29/2018 and noted to be doing well. He denied diarrhea constipation nausea vomiting or fevers. He presented to [facility] on 08/23/2018 with a one-day history of abdominal pain, nausea, and vomiting. He denies headache, dizziness, fever, chills, chest pain, shortness of breath, or feelings of generalized weakness. He endorses feeling a rapid heartbeat and "skipping beats," abdominal pain that is constant and sharp, vomiting several times each hour (he is unable to remember how many times) that is dark and foul-smelling. He denies changes in bowel habits, constipation, diarrhea, or urinary signs or symptoms. Surgery has been asked to evaluate this patient for possible small bowel obstruction. Past Med Surg Social Fam HX - Past Medical History Source: patient, old records reviewed Medical history: asthma, COPD, hyperlipidemia, hypertension, myocardial infarction, other (Irregular heartbeat) Additional medical history: prostate problems Psychiatric history: no psych history - Past Surgical History Surgical History: cholecystectomy, other Additional surgical history: right foot surgery, prostate reduction. 07/10/18 LIBAN. 07/14/18 LAP GABE FUNDOPLICATION @[place] W/DR MCCLAIN - Social History Smoking Status: Never smoker Smokeless Tobacco Status: No Alcohol use: rarely Drug use: none Occupational status: retired Current living situation: Home - Independent Activity Level: Independent ambulation Recent Out of Country Travel Within the Last 8 Weeks: No Exposure or Possible Exposure to Illness During Travel: No Medications and Allergies Albuterol Sulfate [Albuterol Inhaler] 2 puff IH QID PRN 01/01/18 [History] Aspirin [Adult Aspirin Regimen] 81 mg PO DAILY 01/01/18 [History] Calcium Carbonate [Calcium] 500 mg PO TID 01/01/18 [History] Cetirizine HCl [Zyrtec] 10 mg PO DAILY 01/01/18 [History] Cholecalciferol (Vitamin D3) [Vitamin D3] 2,000 unit PO DAILY 01/01/18 [History] Ezetimibe/Simvastatin [Vytorin 10-80 mg Tablet] 1 tab PO DAILY 01/01/18 [History ] Ibandronate Sodium [Boniva] 150 mg PO QMONTH 01/01/18 [History] Nitroglycerin [Nitrostat] 0.4 mg SL Q5M PRN 01/01/18 [History] Magnesium Oxide [Magnesium] 400 mg PO DAILY 06/27/18 [History] Omeprazole [PriLOSEC] 20 mg PO BIDAC #30 cap 06/27/18 [Rx] Potassium Chloride [Klor-Con 10] 10 meq PO BID 06/27/18 [History] Tiotropium [Spiriva] 18 mcg IH 0700 06/27/18 [History] Montelukast [Singulair] 10 mg PO DAILY 07/04/18 [History] Tamsulosin HCl [Flomax] 0.4 mg PO DAILY 07/04/18 [History] Docusate [Colace] 100 mg PO BID PRN #30 capsule 07/14/18 [Rx] Ibuprofen [Ibu] 600 mg PO TID #40 tablet 07/14/18 [Rx] Metoprolol [Lopressor] 25 mg PO BID 07/14/18 [History] Ondansetron ODT [Zofran ODT] 4 mg SL Q6HR PRN #30 tab.rapdis 07/14/18 [Rx] OxyCODONE/APAP 5/325 [Percocet 5/325 MG] 1 each PO Q6HR PRN 5 Days #20 tablet [Rx] 3 Allergy/AdvReac Type Severity Reaction Status Date / Time No Known Allergies Allergy Verified 07/02/18 16:29 Review of Systems All systems PM: reviewed and no additional remarkable complaints except as stated All systems PM: The remainder of the systems were reviewed and are negative General Surgery Exam Initial Vital Signs Temp Pulse Resp BP Pulse Ox 98 F 94 18 142/89 95 08/23/18 19:34 08/23/18 19:34 08/23/18 19:34 08/23/18 19:34 08/23/18 19:34 VITAL SIGNS: Reviewed. See [facility] GENERAL: In no apparent distress. HEENT: Normocephalic, atraumatic, pupils are equal and reactive, extraocular motions intact, oropharynx is pink and moist, there is no neck adenopathy or JVD noted. CHEST/RESPIRATORY: The thorax is free from signs of trauma. Lung sounds: clear to auscultation, normal respiratory effort CARDIAC: Regular rate and rhythm. Normal S1 and S2, without murmurs, gallops, or rubs. VASCULAR: No Edema. 2+ peripheral pulses. ABDOMEN: soft, tender, distended, absent bowel sounds MUSCULOSKELETAL: Good range of motion of all major joints. Extremities without clubbing, cyanosis or edema. NEUROLOGIC EXAM: Alert and oriented x 3. Speech normal. Follows commands. PSYCHIATRIC: Mood normal. SKIN: No rash or lesions. Exam Initial Vital Signs Temp Pulse Resp BP Pulse Ox 98 F 94 18 142/89 95 08/23/18 19:34 08/23/18 19:34 08/23/18 19:34 08/23/18 19:34 08/23/18 19:34 Results - Labs 08/24/18 07:10 08/24/18 05:37 Abnormal lab results RBC 5.58 M/mcL (4.19-5.50) H 08/24/18 07:10 MCV 81.9 fL (83.0-100.0) L 08/24/18 07:10 MCH 27.4 pg (28.0-33.3) L 08/24/18 07:10 RDW 16.2 % (11.5-14.5) H 08/24/18 07:10 MPV 9.0 fL (9.4-12.4) L 08/24/18 07:10 All other labs normal. - Imaging Abdominal x-ray: report reviewed, image reviewed CT scan - abdomen: report reviewed, image reviewed CT scan - pelvis: report reviewed, image reviewed Consult Discharge Plan - Plan Referrals: Pushpa Gambino MD [Primary Care Provider] -
[2018-08-24] MEDS ORDERED: Chloraseptic Spray 177 ML BOTTLE MM STA (10:10)
--- NOTE | 2018-08-24 10:12 | Internal Med Progress Note ---
Hospitalist Progress Note - Encounter Date of Encounter: 08/24/18 Time of Encounter: 10:10 - Subjective Interval History: Patient with history of recent cholecystectomy July 10 and also had a hiatal hernia surgery July 14 patient also history of COPD, hypertension, high cholesterol patient admitted with abdominal pain and dry heaves CT shows small bowel obstruction with moderate ascites patient has been seen by surgery and plan for NG tube in place with no surgical intervention at present patient appears comfortable no nausea or vomiting - Exam Vitals: Temp Pulse Resp BP Pulse Ox 98.3 F 99 18 154/87 94 08/24/18 06:56 08/24/18 06:56 08/24/18 06:56 08/24/18 06:56 08/24/18 06:56 Exam: General: Alert and oriented 3 summer: Lying in bed in no acute distress Skin:Normal color, no rash, no lesions. HEENT:EOM, pupils equal, round and reactive. Cardiovascular:Normal S1 & S2, no rubs, murmurs or gallops. No JVD. Pulse regular. Lungs:Normal breath sounds, no wheezes or crackles. Abdomen:Soft, tender to palpation in the right upper quadrant and across the lower abdomen. Hypoactive bowel sounds. No rebound or guarding noted. Extremities:No deformity, no edema or tenderness, no joint swelling or clubbing. Neurological:Normal cognition and motor skills. Pulses:Carotid and radial pulses normal +2. Rest of the physical exam is non contributory - Assessment and Plan (1) Small bowel obstruction Current Visit: Yes Status: Acute Assessment and Plan: Patient seen in consultation by general surgery and plan for NG tube placement with no surgical intervention at present (2) HTN (hypertension) Current Visit: No Status: Chronic Assessment and Plan: Chronic we will place on when necessary hydralazine (3) Asthma Current Visit: Yes Status: Acute Assessment and Plan: No active wheezing at present will resume home medication (4) Ascites Current Visit: Yes Status: Acute Assessment and Plan: Etiology unclear no history of liver disease Which check a liver function - Time Spent with Patient Total time spent is greater than 50% in coordination of care (as documented) at patient's floor/unit and/or counseling patient: Internal Medicine: Result - Labs CBC & Chem 7: 08/24/18 07:10 Labs: Short CBC 08/24/18 Range/Units 07:10 WBC 7.7 (4.3-11.1) K/mcL Hgb 15.3 (12.9-16.9) g/dL Hct 45.7 (37.5-50.1) % Plt Count 324 (140-400) K/mcL Neutrophils # 6.2 (1.6-8.9) K/mcL - ABG Interpretation ABG results: PT/INR, D-dimer PT 10.3 Seconds (9.4-12.1) 08/24/18 05:37 Consult Discharge Plan - Plan Referrals: Pushpa Gambino MD [Primary Care Provider] - (2) HTN (hypertension) Qualifiers: Hypertension type: essential hypertension Qualified Code(s): I10 - Essential (primary) hypertension (3) Asthma Qualifiers: Asthma severity: unspecified severity Asthma persistence: unspecified Asthma complication type: unspecified Qualified Code(s): J45.909 - Unspecified asthma, uncomplicated (4) Ascites Qualifiers: Ascites type: other type Qualified Code(s): R18.8 - Other ascites
[2018-08-24] MEDS ORDERED: Saliva Stimulant 100ml BOTTLE PO PRN (10:41)
[2018-08-24] MEDS ORDERED: *HR* Promethazine 25 MG/ML VIAL IM ONE (10:41)
[2018-08-24 10:47] LABS: Albumin 3.9 g/dL (3.5-5.7); Albumin/Globulin Ratio 1.3 (1.1-2.2); Bilirubin,Total 1.7 mg/dL (0.3-1.0); Calcium 9.5 mg/dL (8.6-10.3); Globulin 2.9 g/dL (2.4-3.5); Potassium 4.1 mEq/L (3.5-5.1); Total Protein 6.8 g/dL (6.4-8.9)
[2018-08-24] MEDS ORDERED: *HR* Promethazine 25 MG/ML VIAL IVP ONE (10:58)
[2018-08-24] MEDS: *HR* Metoprolol 5 MG/5 ML VIAL IVP SCH ×3 (11:02→23:04)
[2018-08-24] MEDS: 0.9 % Sodium Chloride 1,000 ML IVC SCH ×2 (11:30→23:04)
[2018-08-24] MEDS ORDERED: *HR* Midazolam HCl 5 MG/5 ML VIAL IVP ONE (14:16)
[2018-08-24] MEDS ORDERED: *HR* FentaNYL (PF) 100 MCG/2 ML VIAL ONE (14:16)
[2018-08-24] MEDS ORDERED: 0.9 % Sodium Chloride 500 ML IVC SCH (14:45)
[2018-08-24] MEDS ORDERED: 0.9 % Sodium Chloride 500 ML IVC ONE (15:30)
[2018-08-24] MEDS: Pantoprazole 40 MG VIAL IVP SCH (17:52)
[2018-08-25 04:42] LABS: Basophils % 0.3 %; Eosinophils % 0.2 %; Hematocrit 39.5 % (37.5-50.1); Immature Granulocytes % 0.2 % (0-4); Lymphocytes # 1.2 K/mcL (0.6-4.6); Lymphocytes % 19.7 %; Mean Corpuscular HGB Conc 33.2 g/dL (31.6-35.5); Mean Corpuscular Hemoglobin 27.5 pg (28.0-33.3); Mean Corpuscular Volume 82.8 fL (83.0-100.0); Mean Platelet Volume 9.1 fL (9.4-12.4); Monocytes # 0.5 K/mcL (0.0-1.3); Monocytes % 8.7 %; Neutrophils # 4.2 K/mcL (1.6-8.9); Platelet Count 244 K/mcL (140-400); Red Blood Count 4.77 M/mcL (4.19-5.50); Red Cell Distribution Width 15.9 % (11.5-14.5); Segmented Neutrophils % 70.9 %
[2018-08-25 04:43] LABS: Hemoglobin 13.1 g/dL (12.9-16.9)
[2018-08-25 05:02] LABS: Calcium 8.3 mg/dL (8.6-10.3); Magnesium 1.9 mg/dL (1.6-2.6)
[2018-08-25] MEDS: Ondansetron 4 MG/2 ML VIAL IVP SCH ×3 (06:02→18:03)
[2018-08-25] MEDS: *HR* Metoprolol 5 MG/5 ML VIAL IVP SCH ×3 (06:02→18:03)
[2018-08-25] MEDS: Pantoprazole 40 MG VIAL IVP SCH ×2 (06:02→18:03)
[2018-08-25] MEDS: Tiotropium 18 MCG inhalation IH SCH (07:39)
--- NOTE | 2018-08-25 09:05 | Internal Med Progress Note ---
Hospitalist Progress Note - Encounter Date of Encounter: 08/25/18 Time of Encounter: 09:09 - Subjective Interval History: Patient with history of recent cholecystectomy July 10 and also had a hiatal hernia surgery July 14 patient also history of COPD, hypertension, high cholesterol patient admitted with abdominal pain and dry heaves CT shows small bowel obstruction with moderate ascites patient has been seen by surgery and plan for NG tube in place with no surgical intervention at present patient appears comfortable no nausea or vomiting 08/25 patient seen and examined feels much better has NG tube in place says sob also resolved - Exam Vitals: Temp Pulse Resp BP Pulse Ox 98.7 F 81 16 134/72 94 08/25/18 07:23 08/25/18 07:23 08/25/18 07:23 08/25/18 07:23 08/25/18 07:23 Exam: General: Alert and oriented 3 summer: Lying in bed in no acute distress Skin:Normal color, no rash, no lesions. HEENT:EOM, pupils equal, round and reactive. Cardiovascular:Normal S1 & S2, no rubs, murmurs or gallops. No JVD. Pulse regular. Lungs:Normal breath sounds, no wheezes or crackles. Abdomen:Soft, tender to palpation in the right upper quadrant and across the lower abdomen. Hypoactive bowel sounds. No rebound or guarding noted. Extremities:No deformity, no edema or tenderness, no joint swelling or clubbing. Neurological:Normal cognition and motor skills. Pulses:Carotid and radial pulses normal +2. Rest of the physical exam is non contributory - Assessment and Plan (1) Small bowel obstruction Current Visit: Yes Status: Acute Assessment and Plan: Patient had NG tube placed yesterday and surgery managing bowel obstruction (2) HTN (hypertension) Current Visit: No Status: Chronic Assessment and Plan: Well-controlled (3) Asthma Current Visit: Yes Status: Acute Assessment and Plan: Resumed his home medication and no active wheezing (4) Ascites Current Visit: Yes Status: Acute - Time Spent with Patient Total time spent is greater than 50% in coordination of care (as documented) at patient's floor/unit and/or counseling patient: Internal Medicine: Result - Labs CBC & Chem 7: 08/25/18 04:09 08/25/18 04:09 Labs: Short CBC 08/25/18 Range/Units 04:09 WBC 6.0 (4.3-11.1) K/mcL Hgb 13.1 D (12.9-16.9) g/dL Hct 39.5 (37.5-50.1) % Plt Count 244 (140-400) K/mcL Neutrophils # 4.2 (1.6-8.9) K/mcL BMP 08/24/18 08/25/18 05:37 04:09 Sodium 128 L 135 L Potassium 4.1 4.0 Chloride 100 102 Carbon Dioxide 25 24 BUN 25 H 31 H Creatinine 1.53 H 1.44 H Glucose 154 H 118 H Calcium 9.5 8.3 L Liver Function 08/24/18 Range/Units 05:37 Total Bilirubin 1.7 H (0.3-1.0) mg/dL AST 23 (13-39) Units/L ALT 17 (7-52) Units/L Alkaline Phosphatase 90 (34-104) Units/L Albumin 3.9 (3.5-5.7) g/dL - ABG Interpretation ABG results: PT/INR, D-dimer PT 10.3 Seconds (9.4-12.1) 08/24/18 05:37 - Impressions Impressions KUB X-Ray 08/24/18 11:29 IMPRESSION: 1. Unchanged gastric tube with the tip at the gastroesophageal junction and the sideport in the distal thoracic esophagus. Recommend advancement before use. 2. Persistence of small bowel dilation and marked gastric distention suggestive of ileus. D/ / Noam Mars MD / Noam Mars MD Interpreting Provider: Noam Mars MD Consult Discharge Plan - Plan Referrals: Pushpa Gambino MD [Primary Care Provider] - (2) HTN (hypertension) Qualifiers: Hypertension type: essential hypertension Qualified Code(s): I10 - Essential (primary) hypertension (3) Asthma Qualifiers: Asthma severity: unspecified severity Asthma persistence: unspecified Asthma complication type: unspecified Qualified Code(s): J45.909 - Unspecified asthma, uncomplicated (4) Ascites Qualifiers: Ascites type: other type Qualified Code(s): R18.8 - Other ascites
[2018-08-25] MEDS: *HR* Heparin 5,000 UNIT/ML VIAL SQ SCH ×2 (09:09→16:40)
[2018-08-25] MEDS: 0.9 % Sodium Chloride 1,000 ML IVC SCH (09:10)
--- NOTE | 2018-08-25 10:33 | General Surgery Progress Note ---
Date of Encounter: 08/25/18 Time of Encounter: 10:00 - Assessment and Plan (1) Small bowel obstruction Current Visit: Yes Status: Acute Continue with conservative therapy including: NPO NG tube to LIWS AAS today IV fluids- 100ml/hour Supportive care Serial abdominal exams GI/DVT prophylaxis Ambulate hallways with assistance AM labs- BMP Surgery will continue to follow and assess progress (2) Status post Gabe fundoplication Current Visit: Yes Status: Chronic 6 weeks post-op from Gabe Fundoplication with Dr. Cornell (3) DVT prophylaxis Current Visit: Yes Status: Acute Heparin 5,000 units SQ twice daily for DVT prophylaxis Ambulate hallways TID with assistance- march clamp NG tube for ambulation Subjective Patient reports: no new complaints, feels better, voiding w/o difficulty, no flatus, no bowel movement, afebrile Objective Vital Signs - Last 8 Hours Temp Pulse Resp BP Pulse Ox 08/25/18 07:23 98.7 F 81 16 134/72 94 08/25/18 03:40 99.3 F 98 15 128/76 94 Intake and Output 08/24/18 08/25/18 08/25/18 23:59 07:59 15:59 Intake Total 0 / 0 1000 / 1000 Output Total 550 / 550 600 / 600 Balance -550 / -550 -600 / -600 1000 / 1000 Intake: IV Fluids 1000 / 1000 0.9 % Sodium Chloride 1,000 ML 1000 / 1000 @ 100 mls/hr IVC .Q10H BREANNE Rx#: [id number] Oral 0 / 0 Output: Urine 200 / 200 150 / 150 Gastric Drainage 350 / 350 450 / 450 Other: Meal NPO DINNER Weight 77.6 kg Blood Glucose* 127 104 Patient Weight 08/25/18 23:59 Weight 77.6 kg - General physical appearance well developed, well nourished, no distress - Eyes normal ocular movement - ENT dry mucosa, atraumatic, normocephalic - Neck Neck exam: trachea midline - Respiratory normal respiratory effort, clear to auscultation - Cardiovascular Cardiovascular exam: Present: RRR - Abdomen Abdomen: Present: soft, non tender, wound (NG tube to LIWS with a total of 3300ml of bilious drainage since NG placement 08/24/18) - Incision Incision: Present: clean and dry, intact - Neurologic CN 2-12 grossly intact - Psychiatric oriented to time, oriented to person, oriented to place, speech is normal, memory intact - Labs 08/25/18 04:09 08/25/18 04:09 Diabetes panel 08/24/18 08/25/18 Range/Units 05:37 04:09 Sodium 128 L 135 L (136-145) mEq/L Potassium 4.1 4.0 (3.5-5.1) mEq/L Chloride 100 102 (98-107) mEq/L Carbon Dioxide 25 24 (23-29) mEq/L BUN 25 H 31 H (8-23) mg/dL Creatinine 1.53 H 1.44 H (0.70-1.30) mg/dL Glucose 154 H 118 H (70-105) mg/dL Calcium 9.5 8.3 L (8.6-10.3) mg/dL AST 23 (13-39) Units/L ALT 17 (7-52) Units/L Alkaline Phosphatase 90 (34-104) Units/L Albumin 3.9 (3.5-5.7) g/dL Calcium panel 08/24/18 08/25/18 Range/Units 05:37 04:09 Calcium 9.5 8.3 L (8.6-10.3) mg/dL Albumin 3.9 (3.5-5.7) g/dL Pituitary panel 08/24/18 08/25/18 Range/Units 05:37 04:09 Sodium 128 L 135 L (136-145) mEq/L Potassium 4.1 4.0 (3.5-5.1) mEq/L Chloride 100 102 (98-107) mEq/L Carbon Dioxide 25 24 (23-29) mEq/L BUN 25 H 31 H (8-23) mg/dL Creatinine 1.53 H 1.44 H (0.70-1.30) mg/dL Glucose 154 H 118 H (70-105) mg/dL Calcium 9.5 8.3 L (8.6-10.3) mg/dL Adrenal panel 08/24/18 08/25/18 Range/Units 05:37 04:09 Sodium 128 L 135 L (136-145) mEq/L Potassium 4.1 4.0 (3.5-5.1) mEq/L Chloride 100 102 (98-107) mEq/L Carbon Dioxide 25 24 (23-29) mEq/L BUN 25 H 31 H (8-23) mg/dL Creatinine 1.53 H 1.44 H (0.70-1.30) mg/dL Glucose 154 H 118 H (70-105) mg/dL Calcium 9.5 8.3 L (8.6-10.3) mg/dL Total Bilirubin 1.7 H (0.3-1.0) mg/dL AST 23 (13-39) Units/L ALT 17 (7-52) Units/L Alkaline Phosphatase 90 (34-104) Units/L Albumin 3.9 (3.5-5.7) g/dL Consult Discharge Plan - Plan Referrals: Pushpa Gambino MD [Primary Care Provider] - - Attending Attestation For this encounter, I have reviewed the LUNCH COUNTER MANAGER or PA documentation, treatment plan, and medical decision making; and I have had face to face time with this patient.
[2018-08-26] MEDS: *HR* Heparin 5,000 UNIT/ML VIAL SQ SCH ×3 (00:04→16:12)
[2018-08-26] MEDS: *HR* Metoprolol 5 MG/5 ML VIAL IVP SCH ×4 (00:05→21:05)
[2018-08-26] MEDS: Ondansetron 4 MG/2 ML VIAL IVP SCH ×4 (00:05→21:06)
[2018-08-26] MEDS: Pantoprazole 40 MG VIAL IVP SCH ×2 (06:16→21:05)
[2018-08-26 08:56] LABS: BUN/Creatinine Ratio 27 (6-26); Blood Urea Nitrogen 32 mg/dL (8-23); Calcium 8.5 mg/dL (8.6-10.3); Carbon Dioxide 21 mEq/L (23-29); Chloride 104 mEq/L (98-107); Glucose 72 mg/dL (70-105); Osmolality,Calculated 291 (280-300); Potassium 3.6 mEq/L (3.5-5.1); Sodium 138 mEq/L (136-145); eGFR For Non-African Americans 59 (> 60)
--- NOTE | 2018-08-26 09:38 | Internal Med Progress Note ---
Hospitalist Progress Note - Encounter Date of Encounter: 08/26/18 Time of Encounter: 09:30 - Exam Vitals: Temp Pulse Resp BP Pulse Ox 97.6 F 80 18 129/77 95 08/26/18 06:49 08/26/18 06:49 08/26/18 06:49 08/26/18 06:49 08/26/18 06:49 Exam: General: Alert and oriented 3 summer: Lying in bed in no acute distress Skin:Normal color, no rash, no lesions. HEENT:EOM, pupils equal, round and reactive. Cardiovascular:Normal S1 & S2, no rubs, murmurs or gallops. No JVD. Pulse regular. Lungs:Normal breath sounds, no wheezes or crackles. Abdomen:Soft, tender to palpation in the right upper quadrant and across the lower abdomen. Hypoactive bowel sounds. No rebound or guarding noted. Extremities:No deformity, no edema or tenderness, no joint swelling or clubbing. Neurological:Normal cognition and motor skills. Pulses:Carotid and radial pulses normal +2. Rest of the physical exam is non contributory - Assessment and Plan (1) Small bowel obstruction Current Visit: No Status: Inactive Assessment and Plan: Abdominal pain with dry heaves and hypoactive bowel sounds likely secondary to small bowel obstruction in the setting of recent cholecystectomy and hiatal hernia repair with carlos fundoplication in June. NPO and on NG tube. Surgery following (2) HTN (hypertension) Current Visit: No Status: Chronic Assessment and Plan: Blood pressure stable. We will continue with hydralazine 5 mg IV push every 6 when necessary. (3) Leukocytosis, unspecified Current Visit: Yes Status: Acute Assessment and Plan: Resolved. (4) Asthma Current Visit: Yes Status: Acute Assessment and Plan: Continue home inhalers. (5) Ascites Current Visit: Yes Status: Acute Assessment and Plan: Findings of mild to moderate ascites on CT scan without contrast. Patient has no evidence of abdominal distention or alcohol history. Likely reactive. No indication for paracentesis at this time (6) DVT prophylaxis Current Visit: Yes Status: Acute Assessment and Plan: Subcutaneous heparin. - Time Spent with Patient Total time spent is greater than 50% in coordination of care (as documented) at patient's floor/unit and/or counseling patient: Internal Medicine: Result - Labs CBC & Chem 7: 08/25/18 04:09 08/26/18 07:59 Labs: BMP 08/26/18 07:59 Sodium 138 Potassium 3.6 Chloride 104 Carbon Dioxide 21 L BUN 32 H Creatinine 1.18 Glucose 72 Calcium 8.5 L - ABG Interpretation ABG results: PT/INR, D-dimer PT 10.3 Seconds (9.4-12.1) 08/24/18 05:37 - Impressions Impressions Chest/Abdomen X-ray 08/25/18 10:29 IMPRESSION: Stable partial small bowel obstruction. Nasogastric tube has been advanced with the tip now lying in the gastric antrum. The proximal side port is within the body of the stomach. Bibasilar atelectasis and small right pleural effusion. D/ / 08/25/2018 11:06:39 Norbert Jackson MD / [facility] Interpreting Provider: Norbert Jackson MD Consult Discharge Plan - Plan Referrals: Pushpa Gambino MD [Primary Care Provider] - (2) HTN (hypertension) Qualifiers: Hypertension type: essential hypertension Qualified Code(s): I10 - Essential (primary) hypertension (3) Leukocytosis, unspecified Qualifiers: Leukocytosis type: unspecified Qualified Code(s): D72.829 - Elevated white blood cell count, unspecified (4) Asthma Qualifiers: Asthma severity: unspecified severity Asthma persistence: unspecified Asthma complication type: unspecified Qualified Code(s): J45.909 - Unspecified asthma, uncomplicated (5) Ascites Qualifiers: Ascites type: other type Qualified Code(s): R18.8 - Other ascites
[2018-08-26] MEDS: Tiotropium 18 MCG inhalation IH SCH (10:50)
--- NOTE | 2018-08-26 12:04 | Electrocardiograph Report ---
[address] [address] Test Date: 2018-08-24 Pat Name: Rodríguez Mansfield Department: 115 Room: 3A33 Gender: M Label Fuser Tender: : 1935 Requested By: Eve Alvarado Order Number: [id number] Reading MD: Palmira Ramos Measurements Intervals [place] Rate: 111 P: MD: 0 QRS: 258 QRSD: 129 T: 37 QT: 339 QTc: 404 Interpretive Statements SINUS TACHYCARDIA MARKED RIGHT AXIS DEVIATION RIGHT BUNDLE BRANCH BLOCK Electronically Signed On 08-26-2018 12:02:21 EDT by Palmira Ramos
--- NOTE | 2018-08-26 12:25 | General Surgery Progress Note ---
Date of Encounter: 08/26/18 Time of Encounter: 12:00 - Assessment and Plan (1) Small bowel obstruction Current Visit: Yes Status: Acute Continue with conservative therapy including: NPO NG tube to LIWS AAS- continued air fluid levels with concern for ongoing SBO IV fluids- 75ml/hour Supportive care Serial abdominal exams GI/DVT prophylaxis Ambulate hallways with assistance AM labs- BMP Surgery will continue to follow and assess progress- possible laparoscopy to evaluate for ongoing SBO in the next 24 hours (2) Status post Gabe fundoplication Current Visit: Yes Status: Chronic 6 weeks post-op from Gabe Fundoplication with Dr. Cornell (3) DVT prophylaxis Current Visit: Yes Status: Acute Heparin 5,000 units SQ twice daily for DVT prophylaxis Ambulate hallways TID with assistance- may clamp NG tube for ambulation Subjective Patient reports: no new complaints, feels better, voiding w/o difficulty, no flatus, no bowel movement, afebrile Objective Vital Signs - Last 8 Hours Temp Pulse Resp BP Pulse Ox 08/26/18 10:50 16 95 08/26/18 10:30 97.7 F 92 16 122/79 95 08/26/18 06:49 97.6 F 80 18 129/77 95 08/26/18 04:34 97.5 F L 91 16 137/72 93 Intake and Output 08/25/18 08/26/18 08/26/18 23:59 07:59 15:59 Intake Total 1120 / 1120 60 / 60 Output Total 725 / 725 850 / 850 Balance 395 / 395 -790 / -790 Intake: IV Fluids 1000 / 1000 0.9 % Sodium Chloride 1,000 ML 1000 / 1000 @ 100 mls/hr IVC .Q10H BREANNE Rx#: [id number] Oral 120 / 120 60 / 60 Output: Urine 100 / 100 125 / 125 Gastric Drainage 625 / 625 725 / 725 Other: Meal NPO for breakfast Weight 77.8 kg Blood Glucose* 76 80 Patient Weight 08/26/18 23:59 Weight 77.8 kg - General physical appearance well developed, well nourished, no distress - Eyes PERRL, normal ocular movement - ENT normal mucosa, atraumatic, normocephalic - Neck Neck exam: trachea midline - Respiratory normal respiratory effort, clear to auscultation - Cardiovascular Cardiovascular exam: Present: RRR - Abdomen Abdomen: Present: soft, non tender, wound (NG tube to LIWS with 825ml bilious drainage noted since midnight) - Incision Incision: Present: clean and dry, intact - Neurologic CN 2-12 grossly intact - Psychiatric oriented to time, oriented to person, oriented to place, speech is normal, memory intact - Labs 08/25/18 04:09 08/26/18 07:59 Diabetes panel 08/26/18 Range/Units 07:59 Sodium 138 (136-145) mEq/L Potassium 3.6 (3.5-5.1) mEq/L Chloride 104 (98-107) mEq/L Carbon Dioxide 21 L (23-29) mEq/L BUN 32 H (8-23) mg/dL Creatinine 1.18 (0.70-1.30) mg/dL Glucose 72 (70-105) mg/dL Calcium 8.5 L (8.6-10.3) mg/dL Calcium panel 08/26/18 Range/Units 07:59 Calcium 8.5 L (8.6-10.3) mg/dL Pituitary panel 08/26/18 Range/Units 07:59 Sodium 138 (136-145) mEq/L Potassium 3.6 (3.5-5.1) mEq/L Chloride 104 (98-107) mEq/L Carbon Dioxide 21 L (23-29) mEq/L BUN 32 H (8-23) mg/dL Creatinine 1.18 (0.70-1.30) mg/dL Glucose 72 (70-105) mg/dL Calcium 8.5 L (8.6-10.3) mg/dL Adrenal panel 08/26/18 Range/Units 07:59 Sodium 138 (136-145) mEq/L Potassium 3.6 (3.5-5.1) mEq/L Chloride 104 (98-107) mEq/L Carbon Dioxide 21 L (23-29) mEq/L BUN 32 H (8-23) mg/dL Creatinine 1.18 (0.70-1.30) mg/dL Glucose 72 (70-105) mg/dL Calcium 8.5 L (8.6-10.3) mg/dL - Imaging Abdominal x-ray: report reviewed Additional Studies: KUB X-Ray 08/24/18 11:29 IMPRESSION: 1. Unchanged gastric tube with the tip at the gastroesophageal junction and the sideport in the distal thoracic esophagus. Recommend advancement before use. 2. Persistence of small bowel dilation and marked gastric distention suggestive of ileus. D/ / Noam Mars MD / Noam Mars MD Interpreting Provider: Noam Mars MD Chest/Abdomen X-ray 08/25/18 10:29 IMPRESSION: Stable partial small bowel obstruction. Nasogastric tube has been advanced with the tip now lying in the gastric antrum. The proximal side port is within the body of the stomach. Bibasilar atelectasis and small right pleural effusion. D/ / 08/25/2018 11:06:39 Norbert Jackson MD / [place] Interpreting Provider: Norbert Jackson MD Consult Discharge Plan - Plan Referrals: Pushpa Gambino MD [Primary Care Provider] - - Attending Attestation For this encounter, I have reviewed the RESERVATION AGENT or PA documentation, treatment plan, and medical decision making; and I have had face to face time with this patient.
[2018-08-26] MEDS: D5% in 0.45% NACL w KCl 20 MEQ/1,000 ML MLS IVC SCH (16:12)
--- NOTE | 2018-08-26 17:34 | Anesthesia Evaluation PreOp ---
Date of Encounter: 08/26/18 Time of Encounter: 17:31 - Past History Planned Operation: Diagnostic Laparoscopy Cardiac History: [place], HTN, Hyperlipidemia Pulmonary History: Former smoker (quit in s), Asthma, COPD CASING INSPECTOR History: Denies Any Significant HX Other Medical History: GERD Anesthesia History: No Prior Anesthetic Complications, Past Anesthesia Alcohol Use: rarely Drug use: none Medications and Allergies Albuterol Sulfate [Albuterol Inhaler] 2 puff IH QID PRN 01/01/18 [History] Aspirin [Adult Aspirin Regimen] 81 mg PO DAILY 01/01/18 [History] Cetirizine HCl [Zyrtec] 10 mg PO DAILY 01/01/18 [History] Ezetimibe/Simvastatin [Vytorin 10-80 mg Tablet] 1 tab PO DAILY 01/01/18 [History ] Nitroglycerin [Nitrostat] 0.4 mg SL Q5M PRN 01/01/18 [History] Omeprazole [PriLOSEC] 20 mg PO BIDAC #30 cap 06/27/18 [Rx] Potassium Chloride [Klor-Con 10] 10 meq PO BID 06/27/18 [History] Tiotropium [Spiriva] 18 mcg IH 0700 06/27/18 [History] Montelukast [Singulair] 10 mg PO DAILY 07/04/18 [History] Tamsulosin HCl [Flomax] 0.4 mg PO DAILY 07/04/18 [History] Metoprolol [Lopressor] 25 mg PO BID 07/14/18 [History] 3 Allergy/AdvReac Type Severity Reaction Status Date / Time No Known Allergies Allergy Verified 07/02/18 16:29 - Meds/Allergy Pre-op Review Medications Reviewed: Yes Allergies Reviewed: Yes Beta Blockers on Current Med List: Yes If Beta Blockers taken, Date/Time (Last Dose taken): 08/26/2018 at 1214 Anesthesia Results - Labs 08/25/18 04:09 08/26/18 07:59 - Imaging EKG: report reviewed (08/24/2018 SINUS TACHYCARDIA MARKED RIGHT AXIS DEVIATION RIGHT BUNDLE BRANCH BLOCK) Anesthesia Exam Vital Signs/O2 Sat/Glucose, Most Recent Temp Pulse Resp BP Pulse Ox 97.4 F L 87 16 122/74 96 08/26/18 14:24 08/26/18 14:24 08/26/18 14:24 08/26/18 14:24 08/26/18 14:24 Blood Glucose* 80 Height: 6'/1.83m Weight: 171 lbs/77.8 kg NPO (# of Hours): 8 Pain Scale: 0 Pain Scale Used: Numeric (1 - 10) - HEENT Pupil (Motor): EOMI Mallampati: III (limited neck extension) Teeth: Missing, Poor dentition Oral Opening: Greater than 3 - CASING INSPECTOR LOC: Oriented CASING INSPECTOR Motor: Normal RUE, Normal LUE, Normal RLE, Normal LLE, Normal Face CASING INSPECTOR Sensory: Normal: RUE, LUE, RLE, LLE, Face - Cardiac Rhythm: Regular Murmur: None - Pulmonary Breath Sounds: bilateral Clear Respiratory Effort: Symmetrical Anesthesia Assess/Plan ASA Score: 3 Modified Nichelle Scale for Level of Consciousness: Cooperative, oriented, and tranquil Anesthetic Plan: General Monitoring Plan: Standard Monitors Recovery Plan: PACU
[2018-08-26] MEDS ORDERED: *HR* FentaNYL (PF) 100 MCG/2 ML VIAL ONE (18:15)
[2018-08-26] MEDS ORDERED: *HR* Propofol 200 MG/20 ML VIAL IVP ONE (18:15)
[2018-08-26] MEDS ORDERED: Dexamethasone 4 MG/ML VIAL ONE (18:41)
[2018-08-26] MEDS ORDERED: Ondansetron 4 MG/2 ML VIAL ONE (18:41)
[2018-08-26] MEDS ORDERED: *HR* PHENYLEPHRINE 1,000 MCG/10 ML SYRINGE IVP ONE (18:41)
[2018-08-26] MEDS ORDERED: *HR* OxyCODONE Immed Rel 5 MG TABLET PO PRN (18:47)
[2018-08-26] MEDS ORDERED: *HR* FentaNYL (PF) 100 MCG/2 ML VIAL IVP PRN (18:47)
[2018-08-26] MEDS ORDERED: Neostigmine Methylsulfate 3 MG/3 ML SYRINGE ONE (18:58)
--- NOTE | 2018-08-26 20:01 | Anesthesia Evaluation Post Op ---
Date of Encounter: 08/26/18 Time of Encounter: 20:01 - Vital Signs Vital Signs: Vital Signs/O2 Sat, Most Current Temp Pulse Resp BP Pulse Ox 98.7 F 91 16 148/81 98 08/26/18 19:55 08/26/18 19:55 08/26/18 19:55 08/26/18 19:55 08/26/18 19:55 - Lungs Lungs: Clear Ascult./Percussion - Airway Airway: Non-obstructed - Cardiovascular Regular Rate - Mental Status Mental Status: Alert & Oriented, Answers Appropriately - Pain Pain Scale used: Numeric (1 - 10) (tolerable) - Nausea Vomiting Nausea Vomiting: Not Present - Hydration Hydration: NPO - Discharge PostOp Status: Transfer Patient to floor
[2018-08-27] MEDS: *HR* Metoprolol 5 MG/5 ML VIAL IVP SCH ×4 (00:27→17:19)
[2018-08-27] MEDS: *HR* Heparin 5,000 UNIT/ML VIAL SQ SCH ×3 (00:28→17:19)
[2018-08-27] MEDS: Ondansetron 4 MG/2 ML VIAL IVP SCH ×4 (00:28→17:18)
[2018-08-27] MEDS: D5% in 0.45% NACL w KCl 20 MEQ/1,000 ML MLS IVC SCH ×3 (03:04→23:42)
[2018-08-27 03:58] LABS: Basophils % 0.2 %; Hematocrit 38.2 % (37.5-50.1); Hemoglobin 12.1 g/dL (12.9-16.9); Immature Granulocytes % 0.4 % (0-4); Lymphocytes # 0.8 K/mcL (0.6-4.6); Lymphocytes % 14.7 %; Mean Corpuscular HGB Conc 31.7 g/dL (31.6-35.5); Mean Corpuscular Hemoglobin 27.4 pg (28.0-33.3); Mean Corpuscular Volume 86.4 fL (83.0-100.0); Mean Platelet Volume 8.8 fL (9.4-12.4); Monocytes # 0.3 K/mcL (0.0-1.3); Monocytes % 4.7 %; Neutrophils # 4.5 K/mcL (1.6-8.9); Platelet Count 242 K/mcL (140-400); Red Blood Count 4.42 M/mcL (4.19-5.50); Red Cell Distribution Width 15.1 % (11.5-14.5)
[2018-08-27 04:21] LABS: BUN/Creatinine Ratio 26 (6-26); Blood Urea Nitrogen 29 mg/dL (8-23); Calcium 8.3 mg/dL (8.6-10.3); Carbon Dioxide 24 mEq/L (23-29); Chloride 103 mEq/L (98-107); Glucose 119 mg/dL (70-105); Osmolality,Calculated 293 (280-300); Phosphorous 3.2 mg/dL (2.7-4.5); Potassium 4.1 mEq/L (3.5-5.1); Sodium 138 mEq/L (136-145); eGFR For Non-African Americans > 60 (> 60)
[2018-08-27] MEDS: Pantoprazole 40 MG VIAL IVP SCH ×2 (06:54→17:18)
[2018-08-27] MEDS ORDERED: OXYCODONE Oral CONC 10 MG/0.5 ML ORAL.SYG SL PRN (07:28)
[2018-08-27] MEDS ORDERED: Naloxone 0.4 MG/ML INJ IVP PRN (07:28)
[2018-08-27] MEDS ORDERED: Saliva Stimulant 100ml BOTTLE PO PRN (07:28)
[2018-08-27] MEDS: Tiotropium 18 MCG inhalation IH SCH ×2 (08:21)
--- NOTE | 2018-08-27 11:22 | General Surgery Progress Note ---
Date of Encounter: 08/27/18 Time of Encounter: 11:00 - Assessment and Plan (1) Small bowel obstruction Current Visit: Yes Status: Acute POD #1- Diagnostic laparoscopy and EL[place] with Dr. Cornell Remove NG tube Clear liquid diet IV fluids- 75ml/hour Supportive care GI/DVT prophylaxis Ambulate hallways with assistance Surgery will continue to follow and assess progress (2) Status post Gabe fundoplication Current Visit: Yes Status: Chronic 6 weeks post-op from Gabe Fundoplication with Dr. Cornell (3) DVT prophylaxis Current Visit: Yes Status: Acute Heparin 5,000 units SQ twice daily for DVT prophylaxis Ambulate hallways TID with assistance- march clamp NG tube for ambulation Subjective Patient reports: no new complaints, feels better, voiding w/o difficulty, flatus (X2 this morning), afebrile Objective Vital Signs - Last 8 Hours Resp Pulse Ox 08/27/18 08:21 16 96 Intake and Output 08/26/18 08/27/18 08/27/18 23:59 07:59 15:59 Intake Total 120 / 120 100 / 100 Output Total 0 / 0 Balance 110 / 110 100 / 100 Intake: IV Fluids 100 / 100 KCl 20mEq IN D5%-0.45 NACL 20 100 / 100 meq In 1,000 ml @ 75 mls/hr IVC .[id number] BREANNE Rx#:[id number] Oral 120 / 120 0 / 0 Output: Urine 0 / 0 0 / 0 Estimated Blood Loss Other: Meal NPO NPO Percent of Meal Consumed 0% # Bowel Movements 0 Weight 78.6 kg Blood Glucose* 80 127 Patient Weight 08/27/18 23:59 Weight 78.6 kg - General physical appearance well developed, well nourished, no distress, no pain - Eyes normal ocular movement - ENT normal mucosa, atraumatic, normocephalic - Neck Neck exam: trachea midline - Respiratory normal respiratory effort, clear to auscultation - Cardiovascular Cardiovascular exam: Present: RRR - Abdomen Abdomen: Present: bowel sounds present, soft, non tender, wound (NG tube to LIWS with a total of 150ml of bilious drainage since midnight) - Incision Incision: Present: clean and dry, intact - Neurologic CN 2-12 grossly intact - Psychiatric oriented to time, oriented to person, oriented to place, speech is normal, memory intact - Labs 08/27/18 03:37 08/27/18 03:37 Diabetes panel 08/27/18 Range/Units 03:37 Sodium 138 (136-145) mEq/L Potassium 4.1 (3.5-5.1) mEq/L Chloride 103 (98-107) mEq/L Carbon Dioxide 24 (23-29) mEq/L BUN 29 H (8-23) mg/dL Creatinine 1.12 (0.70-1.30) mg/dL Glucose 119 H (70-105) mg/dL Calcium 8.3 L (8.6-10.3) mg/dL Calcium panel 08/27/18 Range/Units 03:37 Calcium 8.3 L (8.6-10.3) mg/dL Phosphorus 3.2 (2.7-4.5) mg/dL Pituitary panel 08/27/18 Range/Units 03:37 Sodium 138 (136-145) mEq/L Potassium 4.1 (3.5-5.1) mEq/L Chloride 103 (98-107) mEq/L Carbon Dioxide 24 (23-29) mEq/L BUN 29 H (8-23) mg/dL Creatinine 1.12 (0.70-1.30) mg/dL Glucose 119 H (70-105) mg/dL Calcium 8.3 L (8.6-10.3) mg/dL Adrenal panel 08/27/18 Range/Units 03:37 Sodium 138 (136-145) mEq/L Potassium 4.1 (3.5-5.1) mEq/L Chloride 103 (98-107) mEq/L Carbon Dioxide 24 (23-29) mEq/L BUN 29 H (8-23) mg/dL Creatinine 1.12 (0.70-1.30) mg/dL Glucose 119 H (70-105) mg/dL Calcium 8.3 L (8.6-10.3) mg/dL Consult Discharge Plan - Plan Referrals: Pushpa Gambino MD [Primary Care Provider] - - Attending Attestation For this encounter, I have reviewed the CIGAR ROLLER or PA documentation, treatment plan, and medical decision making; and I have had face to face time with this patient.
--- NOTE | 2018-08-27 11:43 | Operative Note ---
Date of procedure: 08/27/18 Pre-op diagnosis: small bowel obstruction Post-op diagnosis: same Procedure: Laparoscopic lysis of adhesions Anesthesia: FENG Surgeon: Saran Cornell Was there an assistant refinery operator present: No Estimated blood loss (cc): 5 Specimen: 0 Condition: stable Disposition: same day Procedure in Detail: After informed consent, the patient was taken to the operating room. After adequate sedation and anesthesia the abdomen was prepped and draped. A were 3 individual 5 mm cannulas placed in the left abdomen. A pneumoperitoneum was created. There is dilated small bowel to an area the transition in the right lower quadrant to decompress small bowel. There was omental tissue was adhesed in multiple areas which had created an arch or bridge. The bowel coursed underneath this area and this created the obstruction. This portion of tissue was lysed. The small bowel was then run from the level of the ileocecal valve to the ligament of Treitz. Small bowel was all free at this point with no further adhesions. At that moment the pneumoperitoneum was removed and the ports were also removed. The skin was closed with 3-0 Vicryl suture and Dermabond.
--- NOTE | 2018-08-27 16:46 | Internal Med Progress Note ---
Hospitalist Progress Note - Encounter Date of Encounter: 08/27/18 Time of Encounter: 16:44 - Subjective Interval History: Patient denies any chest pain or shortness of breath. Patient denies any nausea or vomiting. Patient denies any abdominal pain. Patient denies any dizziness or lightheadedness. Patient stated he is passing gas, patient is tolerating clear liquid diet - Exam Vitals: Temp Pulse Resp BP Pulse Ox 97.6 F 73 15 130/78 97 08/27/18 15:37 08/27/18 15:37 08/27/18 15:37 08/27/18 15:37 08/27/18 15:37 Exam: General: Alert and oriented 3 summer: Lying in bed in no acute distress Skin:Normal color, no rash, no lesions. HEENT:EOM, pupils equal, round and reactive. Cardiovascular:Normal S1 & S2, no rubs, murmurs or gallops. No JVD. Pulse regular. Lungs:Normal breath sounds, no wheezes or crackles. Abdomen:Soft, no tenderness, bowel sounds positive in all 4 quadrant Extremities:No deformity, no edema or tenderness, no joint swelling or clubbing. Neurological:Normal cognition and motor skills. Pulses:Carotid and radial pulses normal +2. Rest of the physical exam is non contributory - Assessment and Plan (1) HTN (hypertension) Current Visit: No Status: Chronic (2) Small bowel obstruction Current Visit: No Status: Inactive (3) Leukocytosis, unspecified Current Visit: Yes Status: Acute - Summary of Assessment and Plan Summary of Assessment and Plan: Postoperative day 1. Patient is tolerating clear liquid diet, counseling patient about Ensure, close monitoring of electrolyte. Advanced diet as tolerated bare surgery team, possible discharge next 24-hour if okay with surgery team. Counseling patient about ambulation - Time Spent with Patient Total time spent is greater than 50% in coordination of care (as documented) at patient's floor/unit and/or counseling patient: 25 - 35 minutes Internal Medicine: Result - Labs CBC & Chem 7: 08/27/18 03:37 08/27/18 03:37 Labs: Short CBC 08/27/18 Range/Units 03:37 WBC 5.6 (4.3-11.1) K/mcL Hgb 12.1 L (12.9-16.9) g/dL Hct 38.2 (37.5-50.1) % Plt Count 242 (140-400) K/mcL Neutrophils # 4.5 (1.6-8.9) K/mcL BMP 08/27/18 03:37 Sodium 138 Potassium 4.1 Chloride 103 Carbon Dioxide 24 BUN 29 H Creatinine 1.12 Glucose 119 H Calcium 8.3 L - ABG Interpretation ABG results: PT/INR, D-dimer PT 10.3 Seconds (9.4-12.1) 08/24/18 05:37 Consult Discharge Plan - Plan Referrals: Pushpa Gambino MD [Primary Care Provider] - (1) HTN (hypertension) Qualifiers: Hypertension type: essential hypertension Qualified Code(s): I10 - Essential (primary) hypertension (3) Leukocytosis, unspecified Qualifiers: Leukocytosis type: unspecified Qualified Code(s): D72.829 - Elevated white blood cell count, unspecified
[2018-08-28] MEDS: *HR* Heparin 5,000 UNIT/ML VIAL SQ SCH ×3 (00:06→15:44)
[2018-08-28] MEDS: Ondansetron 4 MG/2 ML VIAL IVP SCH ×4 (00:06→17:18)
[2018-08-28] MEDS: *HR* Metoprolol 5 MG/5 ML VIAL IVP SCH ×4 (00:06→17:18)
[2018-08-28 01:29] LABS: Basophils % 0.4 %; Eosinophils # 0.1 K/mcL (0.0-0.6); Eosinophils % 1.1 %; Hematocrit 34.4 % (37.5-50.1); Hemoglobin 11.3 g/dL (12.9-16.9); Immature Granulocytes % 0.2 % (0-4); Lymphocytes # 1.5 K/mcL (0.6-4.6); Lymphocytes % 27.9 %; Mean Corpuscular HGB Conc 32.8 g/dL (31.6-35.5); Mean Corpuscular Hemoglobin 27.6 pg (28.0-33.3); Mean Corpuscular Volume 83.9 fL (83.0-100.0); Mean Platelet Volume 8.9 fL (9.4-12.4); Monocytes # 0.5 K/mcL (0.0-1.3); Monocytes % 9.2 %; Neutrophils # 3.3 K/mcL (1.6-8.9); Platelet Count 252 K/mcL (140-400); Red Cell Distribution Width 15.3 % (11.5-14.5); Segmented Neutrophils % 61.2 %
[2018-08-28 01:52] LABS: BUN/Creatinine Ratio 21 (6-26); Blood Urea Nitrogen 22 mg/dL (8-23); Carbon Dioxide 24 mEq/L (23-29); Chloride 106 mEq/L (98-107); Glucose 136 mg/dL (70-105); Magnesium 1.8 mg/dL (1.6-2.6); Osmolality,Calculated 285 (280-300); Phosphorous 1.2 mg/dL (2.7-4.5); Potassium 3.5 mEq/L (3.5-5.1); Sodium 135 mEq/L (136-145); eGFR For Non-African Americans > 60 (> 60)
[2018-08-28] MEDS: Pantoprazole 40 MG VIAL IVP SCH ×2 (06:32→17:18)
[2018-08-28] MEDS: Tiotropium 18 MCG inhalation IH SCH (08:44)
[2018-08-28 10:23] VITALS: BP 137/80
[2018-08-28] MEDS: D5% in 0.45% NACL w KCl 20 MEQ/1,000 ML MLS IVC SCH (12:55)
--- NOTE | 2018-08-28 13:41 | Discharge Summary ---
Orders not resulted at time of discharge: Pending orders 08/29/18 04:00 Basic Metabolic Panel AM 0400 CBC [Complete Blood Count] [HEME] AM 0400 Magnesium AM 0400 Phosphorous AM 0400 08/30/18 04:00 Basic Metabolic Panel AM 0400 CBC [Complete Blood Count] [HEME] AM 0400 Magnesium AM 0400 Phosphorous AM 0400 08/31/18 04:00 Basic Metabolic Panel AM 0400 CBC [Complete Blood Count] [HEME] AM 0400 Magnesium AM 0400 Phosphorous AM 0400 09/01/18 04:00 Basic Metabolic Panel AM 0400 CBC [Complete Blood Count] [HEME] AM 0400 Magnesium AM 0400 Phosphorous AM 0400 Date of Encounter: 08/28/18 Time of Encounter: 17:01 - Discharge Diagnosis (1) HTN (hypertension) Priority: Secondary Status: Chronic Qualifiers: Hypertension type: essential hypertension Qualified Code(s): I10 - Essential (primary) hypertension (2) Small bowel obstruction Priority: Primary Status: Inactive (3) Leukocytosis, unspecified Priority: Secondary Status: Acute Qualifiers: Leukocytosis type: unspecified Qualified Code(s): D72.829 - Elevated white blood cell count, unspecified Hospital course: Mr. Mansfield is 83 year old male with a past medical history of multiple abdominal surgery, recent abdominal hernia repair and nisin fundoplication on July [address] Cornell,He presented to [facility] due to diffuse abdominal. He states the pain was in the lower abdomen and radiating across the lower abdomen. 7 out of 10 in intensity. This patient had difficulty trying to find a comfortable position. Symptoms were associated with dry heaves . Patient had CT of the abdomen performed at [facility] which showed small bowel obstruction with mild to moderate ascites. Lab workup was notable for an elevated white blood cell count 13.1, creatinine of 1.43. A NG tube was attempted unsuccessfully. Patient was subsequently transferred to [facility].NG to low intermittent wall suction advanced under fluroscopy, surgery was consulted , He continue to monitor patient , continued air fluid levels with concern for ongoing SBO. laparoscopy done to evaluate , Per surgery, There is dilated small bowel to an area the transition in the right lower quadrant to decompress small bowel. There was omental tissue was adhesed in multiple areas which had created an arch or bridge. The bowel coursed underneath this area and this created the obstruction. This portion of tissue was lysed. The small bowel was then run from the level of the ileocecal valve to the ligament of Treitz. Small bowel was all free at this point with no further adhesions. At that moment the pneumoperitoneum was removed and the ports were also removed. We continue to monitor patient ,He tolerated full liquied , discussed with surgery team , agreed to discharge patient to follow up , discussed with surgery team , agreed to discharge patient , to follow up with pcp and surgery as op - Time Spent with Patient Total time spent providing and/or coordinating discharge services: Greater than 30 minutes - Discharge Medications Prescriptions: Docusate [Colace] 200 mg PO DAILY #90 capsule Home Medications: Albuterol Sulfate [Albuterol Inhaler] 2 puff IH QID PRN 01/01/18 [History] Aspirin [Adult Aspirin Regimen] 81 mg PO DAILY 01/01/18 [History] Cetirizine HCl [Zyrtec] 10 mg PO DAILY 01/01/18 [History] Ezetimibe/Simvastatin [Vytorin 10-80 mg Tablet] 1 tab PO DAILY 01/01/18 [History ] Nitroglycerin [Nitrostat] 0.4 mg SL Q5M PRN 01/01/18 [History] Omeprazole [PriLOSEC] 20 mg PO BIDAC #30 cap 06/27/18 [Rx] Potassium Chloride [Klor-Con 10] 10 meq PO BID 06/27/18 [History] Tiotropium [Spiriva] 18 mcg IH 0700 06/27/18 [History] Montelukast [Singulair] 10 mg PO DAILY 07/04/18 [History] Tamsulosin HCl [Flomax] 0.4 mg PO DAILY 07/04/18 [History] Metoprolol [Lopressor] 25 mg PO BID 07/14/18 [History] Docusate [Colace] 200 mg PO DAILY #90 capsule 08/28/18 [Rx] Saliva Stimulant [Biotene Moisturizing Rinse] 1 spray PO Q2H PRN bottle [Rx] Allergies/Adverse Reactions: 3 Allergy/AdvReac Type Severity Reaction Status Date / Time No Known Allergies Allergy Verified 07/02/18 16:29 Date of admission: 08/24/18 05:11 Primary care physician: Pushpa Gambino MD Consults: 08/24/18 08:20 Consult to Surgery [CONS] Routine Consulting Provider: Surgery [facility] Reason for Consult: Small bowel obstruction Call Completed: No - Constitutional Vitals: Temp Pulse Resp BP Pulse Ox 98.1 F 74 14 137/80 97 08/28/18 10:21 08/28/18 10:21 08/28/18 10:21 08/28/18 10:21 08/28/18 10:21 General appearance: Present: A&O X 3 Exam: General: Alert and oriented 3 summer: Lying in bed in no acute distress Skin:Normal color, no rash, no lesions. HEENT:EOM, pupils equal, round and reactive. Cardiovascular:Normal S1 & S2, no rubs, murmurs or gallops. No JVD. Pulse regular. Lungs:Normal breath sounds, no wheezes or crackles. Abdomen:Soft, no tenderness, bowel sounds positive in all 4 quadrant Extremities:No deformity, no edema or tenderness, no joint swelling or clubbing. Neurological:Normal cognition and motor skills. Pulses:Carotid and radial pulses normal +2. Rest of the physical exam is non contributory - Head Head exam: Present: atraumatic, normocephalic - Neck Neck exam general surgery: Present: supple, trachea midline. Absent: lymphadenopathy - Respiratory Respiratory exam: Present: CTAB. Absent: accessory muscle use, rales, rhonchi, wheezes - Cardiovascular Cardiovascular exam: Present: RRR, +S1, +S2. Absent: diastolic murmur, gallop, rubs, systolic murmur - GI/Abdominal GI/Abdominal exam: Present: normal bowel sounds, soft, no peritoneal signs. Absent: distended, tenderness - Patient Status Disposition: Home, Self-Care Condition: Good Functional capacity at discharge: independent ambulation Overall status at discharge: patient is progressing back to baseline - Discharge Instructions Follow Up With: Kiya Cornell CNP [Advanced Practice Nurse] - Pushpa Gambino MD [Primary Care Provider] - 09/03/18 Additional Instructions: Please call office to follow-up with surgery in 1 week, - Diet and Activity Activity: increase activity as tolerated Diet: other (For liquid diet until follow-up with surgery team)
--- NOTE | 2018-08-28 16:01 | General Surgery Progress Note ---
<Rachel Gao - Last Filed: 08/28/18 15:59> Date of Encounter: 08/28/18 Time of Encounter: 15:59 - Assessment and Plan (1) Small bowel obstruction Status: Acute POD 2 diagnostic lapropscopy and lysis of adhesion with Dr Cornell - removed NG yesterday - tolerating clear liquid diet, if he can tolerate full for dinner then he can discharge on Gabe soft diet - continue supportive care and pain management - GI prophaxis He is ready to discharge from a surgical perspective (2) Status post Gabe fundoplication Status: Chronic 6 weeks post op from Gabe with Dr Cornell Subjective Patient reports: feels better, tolerating liquids well, flatus, bowel movement, afebrile Objective Vital Signs - Last 8 Hours Temp Pulse Resp BP Pulse Ox 08/28/18 10:21 98.1 F 74 14 137/80 97 08/28/18 08:33 18 98 Intake and Output 08/27/18 08/28/18 08/28/18 23:59 07:59 15:59 Intake Total 1000 / 1000 1000 / 1000 480 / 480 Output Total 0 / 0 200 / 200 Balance 1000 / 1000 800 / 800 480 / 480 Intake: IV Fluids 1000 / 1000 1000 / 1000 KCl 20mEq IN D5%-0.45 NACL 20 1000 / 1000 meq In 1,000 ml @ 75 mls/hr IVC .[id number] BREANNE Rx#:[id number] Oral 0 / 0 0 / 0 480 / 480 Output: Urine 0 / 0 200 / 200 Other: Meal Breakfast Clear # Voids 1 # Bowel Movements 0 0 Weight 77 kg Patient Weight 08/28/18 23:59 Weight 77 kg - General physical appearance well developed, well nourished, no distress - Eyes normal ocular movement - ENT normal pinna, normal nares, normal mucosa - Respiratory normal expansion, normal respiratory effort, clear to auscultation - Cardiovascular Cardiovascular exam: Present: RRR, no murmurs/rubs/gallops - Abdomen Abdomen: Present: bowel sounds present, soft, non tender Hernia: none - Incision Incision: Present: clean and dry, approximated. Absent: red, swollen, inflamed - Neurologic CN 2-12 grossly intact, normal coordination, normal sensation - Musculoskeletal normal gait, normal posture - Psychiatric oriented to time, oriented to person, oriented to place, speech is normal, memory intact - Labs 08/28/18 01:05 08/28/18 01:05 Diabetes panel 08/28/18 Range/Units 01:05 Sodium 135 L (136-145) mEq/L Potassium 3.5 (3.5-5.1) mEq/L Chloride 106 (98-107) mEq/L Carbon Dioxide 24 (23-29) mEq/L BUN 22 (8-23) mg/dL Creatinine 1.03 (0.70-1.30) mg/dL Glucose 136 H (70-105) mg/dL Calcium 8.0 L (8.6-10.3) mg/dL Calcium panel 08/28/18 Range/Units 01:05 Calcium 8.0 L (8.6-10.3) mg/dL Phosphorus 1.2 L (2.7-4.5) mg/dL Pituitary panel 08/28/18 Range/Units 01:05 Sodium 135 L (136-145) mEq/L Potassium 3.5 (3.5-5.1) mEq/L Chloride 106 (98-107) mEq/L Carbon Dioxide 24 (23-29) mEq/L BUN 22 (8-23) mg/dL Creatinine 1.03 (0.70-1.30) mg/dL Glucose 136 H (70-105) mg/dL Calcium 8.0 L (8.6-10.3) mg/dL Adrenal panel 08/28/18 Range/Units 01:05 Sodium 135 L (136-145) mEq/L Potassium 3.5 (3.5-5.1) mEq/L Chloride 106 (98-107) mEq/L Carbon Dioxide 24 (23-29) mEq/L BUN 22 (8-23) mg/dL Creatinine 1.03 (0.70-1.30) mg/dL Glucose 136 H (70-105) mg/dL Calcium 8.0 L (8.6-10.3) mg/dL Consult Discharge Plan - Plan Additional Instructions: Please call office to follow-up with surgery in 1 week, Referrals: Pushpa Gambino MD [Primary Care Provider] - 09/03/18 Kiya Cornell CNP [Advanced Practice Nurse] - Prescriptions: Docusate [Colace] 200 mg PO DAILY #90 capsule <Mook Patel - Last Filed: 08/29/18 14:59> Date of Encounter: 08/28/18 Objective Intake and Output 08/28/18 08/29/18 08/29/18 23:59 07:59 15:59 Intake Total 695 / 695 Balance 695 / 695 Intake: IV Fluids 455 / 455 KCl 20mEq IN D5%-0.45 NACL 20 200 / 200 meq In 1,000 ml @ 75 mls/hr IVC .[id number] BREANNE Rx#:[id number] Potassium Phosphate 22 MEQ In 0 255 / 255 .9 % Sodium Chloride 250 ML @ 40 mls/hr IVPB ONCE ONE Rx#: [id number] Oral 240 / 240 Other: Meal Dinner Percent of Meal Consumed 100% - Labs 08/28/18 01:05 08/28/18 01:05 - Attending Attestation I examined this patient and my medical decision-making was reviewed with the Resident Physician. I agree with the documented findings, disposition and treatment plan as described except to the extent set forth below. I reviewed the above assessment and evaluation and agree with the above plan.
== END 2018-08-28 18:25 | disposition home or self-care (01) | DRG 336 ==
LOC: 3ANU
PROVIDERS: ADMIT Family Medicine; ATTEND Family Medicine
PROC: ENDOEBX (2018-08-24 15:30)

== ENCOUNTER 2018-09-17 14:14 | Inpatient (IN) ==
[2018-09-17] MEDS ORDERED: *HR* FentaNYL (PF) 100 MCG/2 ML VIAL ONE (17:27)
[2018-09-17] MEDS ORDERED: *HR* Midazolam HCl 5 MG/5 ML VIAL IVP ONE ×2 (17:27→17:34)
[2018-09-17] MEDS ORDERED: *HR* FentaNYL (PF) 100 MCG/2 ML VIAL IVP ONE (17:34)
[2018-09-17] MEDS ORDERED: Tetracaine/Benzocaine/Butamben 1 SPRAY AEROSOL MM ONE (17:34)
[2018-09-17] MEDS ORDERED: Simethicone 40 MG/0.6 ML MLS IR ONE (17:34)
[2018-09-17] MEDS ORDERED: Naloxone 0.4 MG/ML INJ IVP PRN (17:43)
[2018-09-17] MEDS ORDERED: *HR* Metoprolol 5 MG/5 ML VIAL IVP PRN (17:43)
[2018-09-17] MEDS ORDERED: Ondansetron 4 MG/2 ML VIAL IVP PRN (17:43)
[2018-09-17 19:00] LABS: Amylase 34 Units/L (29-103); Lipase 4 Units/L (11-82)
[2018-09-17] MEDS: 0.9 % Sodium Chloride 1,000 ML IVC SCH (19:07)
--- NOTE | 2018-09-17 19:35 | General Surgery Consult Note ---
<Eve Alvarado - Last Filed: 09/17/18 16:19> Date of Encounter: 09/17/18 Time of Encounter: 16:12 Assessment and Plan (1) Abdominal pain Current Visit: No Status: Acute Interval history includes: -Lap tay (Juan Ramon) -Robotic Gabe and hiatal hernia repair (Sever) 07/14/2018 -Admitted 08/24/2018 for possible SBO. NG attempted at [facility] without success. EGD and NG placed per endoscopy (Sever) 08/24/2018 -Laproscopic ELENO [id number] (Sever) Admitted 09/17/2018 for abd pain, n/v. CT 09/17 noted Circumferential wall thickening of the distal thoracic esophagus and proximal stomach (detailed below). He has recommended to undergo an EGD for evaluation and possible NG placement. Recommendations, risks, and benefits have been reviewed with the patient and family and he is agreeable to proceed. A signed consent is placed on the hard chart. Plan: Consideration for EGD/NG placement in ednoscopy. NPO Bowel rest IVF per primary team Antiemetics GI and DVT prophylaxis Serial abdominal exams Repeat am labs Surgery will continue to follow along with you. CT/CT abd pelvis w iv no oral IMPRESSION: Circumferential wall thickening of the distal thoracic esophagus and proximal stomach at the level of the diaphragmatic hiatus, with adjacent inflammatory changes as well as small reactive lymph nodes. Findings are suspicious for esophagitis/gastritis. This would be best evaluated with endoscopy. No perforation is identified. Underlying ulceration cannot be excluded. Focal mildly dilated loop of small bowel at an anastomotic site within the mid pelvis, with no proximal distention of small bowel to suggest a functional obstruction. This may be related to peristalsis. Focal anterior 1 cm exophytic lesion measuring approximately 57 Hounsfield units on postcontrast imaging. There is also a similar density lesion arising from the posterior mid left kidney, measuring 51 Hounsfield units, and 19 mm in size. Nonemergent MRI of the kidneys with and without contrast is recommended for further characterization. If unable to undergo MRI, recommend a renal mass protocol CT examination. 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 Qualifiers: Abdominal location: epigastric Qualified Code(s): R10.13 - Epigastric pain (2) Status post Gabe fundoplication Current Visit: No Status: Chronic see above (3) Dysphagia Current Visit: Yes Status: Acute see a/p Qualifiers: Dysphagia type: unspecified Qualified Code(s): R13.10 - Dysphagia, unspecified History of Present Illness Consult date: 09/17/18 (Dr. Roma Delatorre) Reason for consult: other Requesting physician: Kellie Jones History of present illness: Lap tay (Juan Ramon) Robotic Gabe and hiatal hernia repair (Aneta) 07/14/2018 Admitted 08/24/2018 for possible SBO. NG attempted at [facility] without success. EGD and NG placed per endoscopy (Aneta) 08/24/2018 Laproscopic ELENO (Aneta) PMH, PSH, and social history reviewed per EMR. Mr. Mansfield is well know to [facility]. He presented to [facility] ED on following 2 day history of increased abdominal pain (7/10 and wraps a round to his back) nausea, and vomiting x1, absence of flatus and BM for two days. He reports on 09/15/2018 he ate approximately one half of an egg and a couple drinks of apple juice. [place] like he was getting stuck and then it "came back up." He states since this time he has been unable to even swallow liquids for feeling as that it gets stuck and is not pass. He reports intermittent "coughing up or vomiting up some fixed sticky spit." He denies bilious vomiting. He denies fever, but reports feeling chilled. He denies black, bloody, or tarry stool. He denies urinary signs or symptoms. He does endorse a few day history of difficulty passing a bowel movement and yet Thursday morning he had to use and enema in order to endorse a bowel movement. He denies easy bruising or bleeding. A CT of the abdomen and pelvis was obtained (see details in A/P). An NG was recommended but the patient refused. He was treated with IVF and nausea medications. He was recommended transfer to [facility]. Surgery has been asked to evaluate this patient regarding possible small bowel obstruction. Past Med Surg Social Fam HX - Past Medical History Medical history: asthma, COPD, hyperlipidemia, hypertension, myocardial infarction, other Additional medical history: prostate problems Psychiatric history: no psych history - Past Surgical History Surgical History: cholecystectomy, other Additional surgical history: right foot surgery, prostate reduction. 07/10/18 TAY. 07/14/18 LAP GABE FUNDOPLICATION @[facility]/DR MCCLAIN - Social History Smoking Status: Never smoker Smokeless Tobacco Status: No Alcohol use: rarely Drug use: none Medications and Allergies RX: Albuterol Sulfate [Albuterol Inhaler] 2 puff IH QID PRN 01/01/18 [History] RX: Aspirin [Adult Aspirin Regimen] 81 mg PO DAILY 01/01/18 [History] RX: Cetirizine HCl [Zyrtec] 10 mg PO DAILY 01/01/18 [History] RX: Ezetimibe/Simvastatin [Vytorin 10-80 mg Tablet] 1 tab PO DAILY 01/01/18 [History] RX: Nitroglycerin [Nitrostat] 0.4 mg SL Q5M PRN 01/01/18 [History] RX: Potassium Chloride [Klor-Con 10] 10 meq PO BID 06/27/18 [History] RX: Tiotropium [Spiriva] 18 mcg IH 0700 06/27/18 [History] RX: Montelukast [Singulair] 10 mg PO DAILY 07/04/18 [History] RX: Tamsulosin HCl [Flomax] 0.4 mg PO DAILY 07/04/18 [History] RX: Metoprolol [Lopressor] 25 mg PO BID 07/14/18 [History] RX: Docusate [Colace] 200 mg PO DAILY #90 capsule 08/28/18 [Rx] RX: Omeprazole [PriLOSEC] 40 mg PO DAILY 09/17/18 [History] Allergy/AdvReac Type Severity Reaction Status Date / Time No Known Allergies Allergy Verified 09/17/18 11:52 Review of Systems All systems PM: reviewed and no additional remarkable complaints except as stated All systems PM: The remainder of the systems were reviewed and are negative Results - Labs All other labs normal. - Imaging CT scan - abdomen: report reviewed CT scan - pelvis: report reviewed Consult Discharge Plan - Plan Referrals: Pushpa Gambino MD [Primary Care Provider] - <Roma Delatorre - Last Filed: 09/17/18 18:16> Assessment and Plan (1) Status post Gabe fundoplication Current Visit: No Status: Chronic (2) Abdominal pain Current Visit: No Status: Acute Qualifiers: Abdominal location: epigastric Qualified Code(s): R10.13 - Epigastric pain (3) Dysphagia Current Visit: Yes Status: Acute Qualifiers: Dysphagia type: unspecified Qualified Code(s): R13.10 - Dysphagia, unspecified Past Med Surg Social Fam HX - Past Medical History Source: patient Review of Systems All systems PM: reviewed and no additional remarkable complaints except as stated All systems PM: The remainder of the systems were reviewed and are negative General Surgery Exam Initial Vital Signs Temp Pulse Resp BP Pulse Ox 97.1 F L 81 18 145/81 96 09/17/18 17:44 09/17/18 17:44 09/17/18 17:44 09/17/18 17:44 09/17/18 17:44 - General physical appearance well developed, well nourished, no distress - Eyes PERRL, normal ocular movement - ENT normal mucosa, normocephalic - Neck trachea midline - Respiratory normal expansion, normal respiratory effort - Cardiovascular Cardiovascular exam: Present: RRR - Abdomen Abdomen general surgery: Present: bowel sounds present, soft, non tender, distended. Absent: guarding, rebound - Integumentary Integumentary general surgery: Present: warm and dry - Neurologic Present: CN 2-12 grossly intact - Musculoskeletal Present: normal posture - Psychiatric Psychiatric general surgery: Present: A&Ox3, speech is normal Exam Initial Vital Signs Temp Pulse Resp BP Pulse Ox 97.1 F L 81 18 145/81 96 09/17/18 17:44 09/17/18 17:44 09/17/18 17:44 09/17/18 17:44 09/17/18 17:44 Results - Labs All other labs normal. - Imaging CT scan - abdomen: report reviewed, image reviewed CT scan - pelvis: report reviewed, image reviewed (labs done at [place] reviewed) - Attending Attestation I have personally performed a face to face evaluation on this patient. I have reviewed and agree with the care plan. History and Exam by me shows:
--- NOTE | 2018-09-17 19:40 | Pre-Sedation Evaluation ---
Pre-sedation evaluation - Pre-sedation checklist Date of procedure: 09/17/18 Procedure: EGD H&P (including ROS) documented in medical record: Yes Previous reaction to sedatives/anesthetics: No Dietary Status: NPO 6 hours prior to procedure Dentition: No loose teeth or bridges, full dentition ASA Classification *see protocol: CLASS III-Severe systemic disease Plan of Care: Pt appropriate candidate for procedure/moderate/conscious sedation, Risks/benefits of procedure/sedation discussed w/ patient/family
--- NOTE | 2018-09-17 20:39 | Internal Med History&Physical ---
Date of Encounter: 09/17/18 Time of Encounter: 19:00 Internal Medicine - H&P: HPI Admitted From: Home Plans for Post Hospital Care: Home History of present illness: The patient is an 83-year-old male. He has been fighting with abdominal pain for about 3 months. During that time she lost about 25-30 pounds. He had laparoscopic cholecystectomy on 07/03/2018. Followed by robotic Marlen and hiatal hernia repair on 07/03/2018. He was admitted on 08/24/2018 for possible small bowel obstruction. Subsequently he had EGD/NG tube insertion by surgery. Then, he underwent lysis of adhesions on 08/27 2018. His epigastric pain is mostly in the middle of his epigastrium. It is associated with dysphagia but not nausea and vomiting. We got this patient from [facility] emergency room today. Shortly after arrival to our hospital he underwent EGD done by Dr. Delatorre. An extensive swelling of esophagogastric juncture has been found; NG tube has been inserted. The patient does have underlying GERD. PAST MEDICAL HX: The patient had "silent CT" last year. After it was discovered he underwent stress test. It showed normal findings. He has never had cardiac catheterization. His other medical problems include hypertension, hyperlipidemia, COPD and GERD. He has some benign prostatic hypertrophy. His surgical interventions are listed above. REVIEW OF SYSTEMS: All 14 organ systems were reviewed by me with the patient. Positive and per tinent negative findings are listed above. The rest of organ systems is negative. PHYSICAL EXAM: Skin: Free of rash and discoloration. Eyes: Sclera is white. There is no discharge from eyes. ENMT: Oral/pharyngeal mucosa is normal in appearance. There is no discharge from nose or ears. Respiratory: Normal breath sounds with no crackles and wheezes bilaterally. CV: Heart is regular with no gallop or murmur. GI: Abdomen is flat and soft with no palpable mass or visceromegaly. : There is no tenderness in patient's flanks bilaterally. Neuro exam: He has good strength in upper and lower extremities. He has normal eye movements. Psychiatric: He has normal affect. His thought process is appropriate to the situation. ADDITIONAL DATA: EGD has been done. It showed an extensive swelling of the very distal portion of his esophagus. It corresponds to swelling of that area on CT of abdomen/pelvis. The CT does not show any evidence for bowel obstruction. He had blood testing done at [facility] emergency room. Hemoglobin was 12.6 with normal WBC/platelet count. Pro time INR was 1.1. His BMP showed normal findings; with potassium 3.7 and creatinine of 1.09. Random glucose was 127. Liver function tests were normal. UA was normal, too. A/P: Is a pharyngitis with dysphagia. The patient had recently Niesen fundoplication. General surgery is consulted. NG tube is inserted to it will stay in for a couple days. Then, we will do a barium swallowing study. He will get IV fluids. We will offer him IV Protonix at 40 mg twice a day. See other orders from general surgery. The patient suffers from severe protein calorie malnutrition. Will address this issue later, when he is able to start eating/drinking fluids. His other problems are mentioned by me above. They seem to be stable/controlled. Past Med Surg Social Fam HX - Past Medical History Medical history: asthma, COPD, hyperlipidemia, hypertension, myocardial infarction, other Additional medical history: prostate problems Psychiatric history: no psych history - Past Surgical History Surgical History: cholecystectomy, other Additional surgical history: right foot surgery, prostate reduction. 07/10/18 [facility]. 07/14/18 LAP MARLEN FUNDOPLICATION @[facility] W/DR MCCLAIN - Social History Smoking Status: Never smoker Smokeless Tobacco Status: No Alcohol use: rarely Drug use: none Internal Medicine - H&P: Meds Albuterol Sulfate [Albuterol Inhaler] 2 puff IH QID PRN 01/01/18 [History] Aspirin [Adult Aspirin Regimen] 81 mg PO DAILY 01/01/18 [History] Cetirizine HCl [Zyrtec] 10 mg PO DAILY 01/01/18 [History] Ezetimibe/Simvastatin [Vytorin 10-80 mg Tablet] 1 tab PO DAILY 01/01/18 [History] Nitroglycerin [Nitrostat] 0.4 mg SL Q5M PRN 01/01/18 [History] Potassium Chloride [Klor-Con 10] 10 meq PO BID 06/27/18 [History] Tiotropium [Spiriva] 18 mcg IH 0700 06/27/18 [History] Montelukast [Singulair] 10 mg PO DAILY 07/04/18 [History] Tamsulosin HCl [Flomax] 0.4 mg PO DAILY 07/04/18 [History] Metoprolol [Lopressor] 25 mg PO BID 07/14/18 [History] Docusate [Colace] 200 mg PO DAILY #90 capsule 08/28/18 [Rx] Omeprazole [PriLOSEC] 40 mg PO DAILY 09/17/18 [History] Allergy/AdvReac Type Severity Reaction Status Date / Time No Known Allergies Allergy Verified 09/17/18 11:52 - Constitutional Vitals: Temp Pulse Resp BP Pulse Ox 97.1 F L 81 18 126/52 96 09/17/18 17:44 09/17/18 17:55 09/17/18 17:55 09/17/18 17:55 09/17/18 17:55 General appearance: Present: A&O X 3, answers questions appropriately Exam: xx - Time Spent With Patient Total time spent is greater than 50% in coordination of care (as documented) at patient's floor/unit and/or counseling patient: - VTE Deep Vein Thrombosis/Pulmonary Embolism Present on Admission: No
[2018-09-18] MEDS: *HR* Metoprolol 5 MG/5 ML VIAL IVP SCH ×4 (00:22→16:57)
[2018-09-18] MEDS ORDERED: Ketorolac 15 MG/ML VIAL IVP PRN (01:34)
[2018-09-18] MEDS ORDERED: Chloraseptic Spray 177 ML BOTTLE MM PRN (01:35)
[2018-09-18 04:12] LABS: Basophils % 0.4 %; Eosinophils # 0.6 K/mcL (0.0-0.6); Eosinophils % 5.9 %; Hematocrit 41.7 % (37.5-50.1); Hemoglobin 13.2 g/dL (12.9-16.9); Immature Granulocytes % 0.4 % (0-4); Lymphocytes # 2.3 K/mcL (0.6-4.6); Lymphocytes % 22.7 %; Mean Corpuscular HGB Conc 31.7 g/dL (31.6-35.5); Mean Corpuscular Hemoglobin 27.2 pg (28.0-33.3); Mean Platelet Volume 8.9 fL (9.4-12.4); Monocytes # 0.8 K/mcL (0.0-1.3); Neutrophils # 6.3 K/mcL (1.6-8.9); Platelet Count 416 K/mcL (140-400); Red Blood Count 4.85 M/mcL (4.19-5.50); Red Cell Distribution Width 15.5 % (11.5-14.5); Segmented Neutrophils % 62.6 %
[2018-09-18 04:34] LABS: BUN/Creatinine Ratio 12 (6-26); Blood Urea Nitrogen 11 mg/dL (8-23); Carbon Dioxide 27 mEq/L (23-29); Chloride 102 mEq/L (98-107); Glucose 91 mg/dL (70-105); Magnesium 1.8 mg/dL (1.6-2.6); Osmolality,Calculated 285 (280-300); Phosphorous 3.3 mg/dL (2.7-4.5); Potassium 4.4 mEq/L (3.5-5.1); Sodium 138 mEq/L (136-145); eGFR For Non-African Americans > 60 (> 60)
[2018-09-18] MEDS: 0.9 % Sodium Chloride 1,000 ML IVC SCH ×2 (06:39→21:52)
--- NOTE | 2018-09-18 10:05 | General Surgery Progress Note ---
Date of Encounter: 09/18/18 Time of Encounter: 10:03 - Assessment and Plan (1) Status post Gabe fundoplication Current Visit: No Status: Chronic patient with dysphagia and had planned UGI for this thursday if still passing flatus and without complaints tomorrow am, will check axr and if wnl will order UGI and sbft (2) Abdominal pain Current Visit: No Status: Resolved Qualifiers: Abdominal location: epigastric Qualified Code(s): R10.13 - Epigastric pain (3) Dysphagia Current Visit: Yes Status: Acute planning ugi/sbft in next 24 hrs if patient continues with no abdominal pain, nausea or distention and axr ok in am Qualifiers: Dysphagia type: unspecified Qualified Code(s): R13.10 - Dysphagia, u nspecified Subjective Patient reports: no new complaints, feels better, pain is less, flatus, no bowel movement, afebrile Narrative: denies distention, no nausea Objective Vital Signs - Last 8 Hours Temp Pulse Resp BP Pulse Ox 09/18/18 08:43 97.5 F L 87 17 132/74 98 09/18/18 02:45 98.7 F 101 14 162/88 97 Intake and Output 09/17/18 09/18/18 09/18/18 23:59 07:59 15:59 Intake Total 1060 / 1060 Output Total 400 / 400 Balance 660 / 660 Intake: IV Fluids 1000 / 1000 0.9 % Sodium Chloride 1,000 ML 1000 / 1000 @ 75 mls/hr IVC [id number] [facility] Rx #:[id number] Oral 60 / 60 Output: Urine 400 / 400 Other: Meal NPO DINNER Weight 77 kg Blood Glucose* 85 82 - General physical appearance well developed, well nourished, no distress, no pain - Eyes PERRL, normal ocular movement - ENT normal mucosa, normocephalic - Neck Neck exam: trachea midline - Respiratory normal expansion, clear to auscultation - Cardiovascular Cardiovascular exam: Present: RRR - Abdomen Abdomen: Present: bowel sounds present, soft, non tender. Absent: distended, guarding, rebound - Integumentary no rash, no growths - Neurologic CN 2-12 grossly intact - Musculoskeletal normal posture - Psychiatric oriented to time, oriented to person, oriented to place, speech is normal, memory intact - Labs 09/18/18 02:46 09/18/18 02:46 Diabetes panel 09/18/18 Range/Units 02:46 Sodium 138 (136-145) mEq/L Potassium 4.4 (3.5-5.1) mEq/L Chloride 102 (98-107) mEq/L Carbon Dioxide 27 (23-29) mEq/L BUN 11 (8-23) mg/dL Creatinine 0.94 (0.70-1.30) mg/dL Glucose 91 (70-105) mg/dL Calcium 9.0 (8.6-10.3) mg/dL Calcium panel 09/18/18 Range/Units 02:46 Calcium 9.0 (8.6-10.3) mg/dL Phosphorus 3.3 (2.7-4.5) mg/dL Pituitary panel 09/18/18 Range/Units 02:46 Sodium 138 (136-145) mEq/L Potassium 4.4 (3.5-5.1) mEq/L Chloride 102 (98-107) mEq/L Carbon Dioxide 27 (23-29) mEq/L BUN 11 (8-23) mg/dL Creatinine 0.94 (0.70-1.30) mg/dL Glucose 91 (70-105) mg/dL Calcium 9.0 (8.6-10.3) mg/dL Adrenal panel 09/18/18 Range/Units 02:46 Sodium 138 (136-145) mEq/L Potassium 4.4 (3.5-5.1) mEq/L Chloride 102 (98-107) mEq/L Carbon Dioxide 27 (23-29) mEq/L BUN 11 (8-23) mg/dL Creatinine 0.94 (0.70-1.30) mg/dL Glucose 91 (70-105) mg/dL Calcium 9.0 (8.6-10.3) mg/dL - VTE Deep Vein Thrombosis/Pulmonary Embolism Present on Admission: No Consult Discharge Plan - Plan Referrals: Pushpa Gabmino MD [Primary Care Provider] -
[2018-09-18] MEDS: Pantoprazole 40 MG VIAL IVP SCH (10:19)
--- NOTE | 2018-09-18 21:25 | Internal Med Progress Note ---
Hospitalist Progress Note - Encounter Date of Encounter: 09/18/18 Time of Encounter: 19:00 - Subjective Interval History: SUBJECTIVE: We lost the patient's NG tube. He is not using it anymore. His midepigastric pain is mild. Not associated with nausea or vomiting. Denies chest pain and difficulty breathing. He has normal urination. OBJECTIVE: Skin: Free of rash and discoloration. ENMT: Oral/pharyngeal mucosa is normal in appearance. Eyes: Sclera is white. There is no discharge from eyes. Respiratory: Normal breath sounds; no crackles or wheezes. CV: Heart is regular; no gallop or murmur. GI: Abdomen is soft. It is mildly tender in midepigastrium. There is no palpable mass or visceromegaly. Neuro: There is no focal deficits. ADDITIONAL DATA: He has normal CBC and BMP. ASSESSMENT AND PLAN: Esophagitis with dysphagia. He had recently Gabe fundoplication. We will continue IV fluids and IV Protonix. He will have upper GI and small bowel follow-through in a couple days. See notes from general surgery. Severe protein calorie malnutrition. This issue will be addressed, as and as he is able to eat. Hypertension. History of myocardial infarction. He is on scheduled IV Lopressor. COPD. Stable. Will continue when necessary albuterol inhalations. - Exam Vitals: Temp Pulse Resp BP Pulse Ox 98.2 F 91 16 132/75 97 09/18/18 20:19 09/18/18 20:19 09/18/18 20:19 09/18/18 20:19 09/18/18 20:19 Exam: xx - Assessment and Plan (1) Esophagitis Current Visit: Yes Status: Acute (2) Dysphagia Current Visit: Yes Status: Acute (3) Severe protein-calorie malnutrition Current Visit: Yes Status: Acute (4) HTN (hypertension) Current Visit: No Status: Chronic (5) COPD (chronic obstructive pulmonary disease) Current Visit: Yes Status: Acute - Time Spent with Patient Total time spent is greater than 50% in coordination of care (as documented) at patient's floor/unit and/or counseling patient: 25 - 35 minutes Plan of Care Discussed with: patient Internal Medicine: Result - Labs CBC & Chem 7: 09/18/18 02:46 09/18/18 02:46 Labs: Short CBC 09/18/18 Range/Units 02:46 WBC 10.1 (4.3-11.1) K/mcL Hgb 13.2 (12.9-16.9) g/dL Hct 41.7 (37.5-50.1) % Plt Count 416 H (140-400) K/mcL Neutrophils # 6.3 (1.6-8.9) K/mcL BMP 09/18/18 02:46 Sodium 138 Potassium 4.4 Chloride 102 Carbon Dioxide 27 BUN 11 Creatinine 0.94 Glucose 91 Calcium 9.0 - Impressions Impressions KUB X-Ray 09/17/18 21:49 IMPRESSION: Proximal esophagogastric tube placement. Some of the tubing may be coiled in the oropharynx. Recommend advancing 10-15 cm. D/ / Raul Patricia / Raul Patricia Interpreting Provider: Raul Patricia X-Ray 09/17/18 23:50 IMPRESSION: Tip of the NG tube is at the level of the gastroesophageal junction. No recommend advancement by approximately 5-10 cm. D/ / Samir Eason MD / Samir Eason MD Interpreting Provider: Samir Eason MD - VTE Deep Vein Thrombosis/Pulmonary Embolism Present on Admission: No Consult Discharge Plan - Plan Referrals: Pushpa Gambino MD [Primary Care Provider] - (2) Dysphagia Qualifiers: Dysphagia type: esophageal phase Qualified Code(s): R13.10 - Dysphagia, unspecified (4) HTN (hypertension) Qualifiers: Hypertension type: essential hypertension Qualified Code(s): I10 - Essential (primary) hypertension
[2018-09-19] MEDS: *HR* Metoprolol 5 MG/5 ML VIAL IVP SCH ×5 (00:49→23:55)
[2018-09-19] MEDS: *HR* Heparin 5,000 UNIT/ML VIAL SQ SCH ×2 (06:29→18:23)
[2018-09-19] MEDS: Pantoprazole 40 MG VIAL IVP SCH (09:39)
[2018-09-19] MEDS: 0.9 % Sodium Chloride 1,000 ML IVC SCH ×2 (12:30→23:55)
--- NOTE | 2018-09-19 12:50 | Internal Med Progress Note ---
Hospitalist Progress Note - Encounter Date of Encounter: 09/19/18 Time of Encounter: 12:48 - Subjective Interval History: SUBJECTIVE: The patient feels pretty good. His midepigastric pain is mild. His nausea is only occasionally (without the vomiting). Denies chest pain and difficulty breathing. Denies coughing and wheezing. The patient is on nothing by mouth diet. OBJECTIVE: Skin: Free of rash and discoloration. ENMT: Oral/pharyngeal mucosa is normal in appearance. Eyes: Sclera is white. There is no discharge from eyes. Respiratory: Normal breath sounds; no crackles or wheezes. CV: Heart is regular; no gallop or murmur. GI: Abdomen is soft. It is mildly tender in midepigastrium. There is no palpable mass or visceromegaly. Neuro: There is no focal deficits. ADDITIONAL DATA: Chest x-ray and KUB are ordered for today. Upper GI series is ordered for tomorrow. ASSESSMENT AND PLAN: Esophagitis with dysphagia. He had recently Gabe fundoplication. We will continue IV fluids and IV Protonix. He will have upper GI tomorrow. See notes from general surgery. Severe protein calorie malnutrition. This issue will be addressed, as and as he is able to eat. Hypertension. History of myocardial infarction. He is on scheduled IV Lo pressor. COPD. Stable. Will continue when necessary albuterol inhalations. - Exam Vitals: Temp Pulse Resp BP Pulse Ox 97.6 F 89 16 142/74 96 09/19/18 11:12 09/19/18 11:12 09/19/18 11:12 09/19/18 11:12 09/19/18 11:12 Exam: xx - Assessment and Plan (1) Esophagitis Current Visit: Yes Status: Acute (2) Dysphagia Current Visit: Yes Status: Acute (3) Severe protein-calorie malnutrition Current Visit: Yes Status: Acute (4) HTN (hypertension) Current Visit: No Status: Chronic (5) COPD (chronic obstructive pulmonary disease) Current Visit: Yes Status: Acute - Time Spent with Patient Total time spent is greater than 50% in coordination of care (as documented) at patient's floor/unit and/or counseling patient: 25 - 35 minutes Plan of Care Discussed with: patient Internal Medicine: Result - Labs CBC & Chem 7: 09/18/18 02:46 09/18/18 02:46 - VTE Deep Vein Thrombosis/Pulmonary Embolism Present on Admission: No Consult Discharge Plan - Plan Referrals: Pushpa Gambino MD [Primary Care Provider] - (2) Dysphagia Qualifiers: Dysphagia type: esophageal phase Qualified Code(s): R13.10 - Dysphagia, unspecified (4) HTN (hypertension) Qualifiers: Hypertension type: essential hypertension Qualified Code(s): I10 - Essential (primary) hypertension
--- NOTE | 2018-09-19 13:53 | General Surgery Progress Note ---
Date of Encounter: 09/19/18 Time of Encounter: 13:51 - Assessment and Plan (1) Status post Gabe fundoplication Current Visit: No Status: Chronic patient with dysphagia will check ugi tomorrow ok clears today 300/meal on colace and started miralax today start pr dulcolax (2) Dysphagia Current Visit: Yes Status: Acute planning ugi/sbft in next 24 hrs if patient continues with no abdominal pain, nausea or distention and axr ok in am Qualifiers: Dysphagia type: esophageal phase Qualified Code(s): R13.10 - Dysphagia, unspecified Subjective Patient reports: no new complaints, feels better, flatus, no bowel movement, afebrile Narrative: denies abdominal pain, nausea or distention Objective Vital Signs - Last 8 Hours Temp Pulse Resp BP Pulse Ox 09/19/18 11:12 97.6 F 89 16 142/74 96 09/19/18 06:37 97.8 F 100 16 147/77 98 Intake and Output 09/18/18 09/19/18 09/19/18 23:59 07:59 15:59 Intake Total 1000 / 1000 0 / 0 1000 / 1000 Output Total 900 / 900 700 / 700 Balance 1000 / 1000 -900 / -900 300 / 300 Intake: IV Fluids 1000 / 1000 1000 / 1000 0.9 % Sodium Chloride 1,000 ML 1000 / 1000 1000 / 1000 @ 75 mls/hr IVC .[id number] [facility] Rx #:[id number] Oral 0 / 0 0 / 0 Output: Urine 900 / 900 700 / 700 Other: Meal Lunch Percent of Meal Consumed 0% # Bowel Movements 0 0 Weight 69.1 kg Blood Glucose* 64 62 58 Patient Weight 09/19/18 23:59 Weight 69.1 kg - General physical appearance well developed, well nourished, no distress - Eyes PERRL, normal ocular movement - ENT normal mucosa, normocephalic - Neck Neck exam: trachea midline - Respiratory normal expansion, clear to auscultation - Cardiovascular Cardiovascular exam: Present: RRR - Abdomen Abdomen: Present: bowel sounds present, soft, non tender. Absent: distended - Integumentary no rash, no growths - Neurologic CN 2-12 grossly intact - Musculoskeletal normal posture - Psychiatric oriented to time, oriented to person, oriented to place, speech is normal, memory intact - Labs 09/18/18 02:46 09/18/18 02:46 - Imaging Abdominal x-ray: report reviewed, image reviewed - VTE Deep Vein Thrombosis/Pulmonary Embolism Present on Admission: No Consult Discharge Plan - Plan Referrals: Pushpa Gambino MD [Primary Care Provider] -
[2018-09-19] MEDS: Bisacodyl 10 MG RECTAL SUPPOSITORY RC SCH (18:24)
[2018-09-20] MEDS: *HR* Heparin 5,000 UNIT/ML VIAL SQ SCH ×2 (06:24→17:19)
[2018-09-20] MEDS: *HR* Metoprolol 5 MG/5 ML VIAL IVP SCH ×3 (06:24→17:19)
[2018-09-20] MEDS: Pantoprazole 40 MG VIAL IVP SCH (09:22)
[2018-09-20] MEDS: Bisacodyl 10 MG RECTAL SUPPOSITORY RC SCH (09:22)
--- NOTE | 2018-09-20 09:44 | General Surgery Progress Note ---
<BelaYoel S - Last Filed: 09/20/18 13:40> Date of Encounter: 09/20/18 Time of Encounter: 09:42 - Assessment and Plan (1) Status post Gabe fundoplication Current Visit: No Status: Chronic Patient tolerated clears yesterday, NPO at midnight for upper GI study Upper GI today showed delay in most of the contrast through the Gabe fundop lication wrap, there was no further imaging beyond the first few swallows due to concerns for aspiration Will start clears again, no carbonation Ordered ensure clear TID On colace, dulcolax suppository, Miralax - patient had BM yesterday (2) Dysphagia Current Visit: Yes Status: Acute Patient had upper GI study this morning which showed the bulk of contrast was delayed in passing through the Gabe fundoplication wrap The study was discontinued after the first few swallows due to concerns for aspiration Ok to resume clears (no carbonation) and ensure clear TID Qualifiers: Dysphagia type: esophageal phase Qualified Code(s): R13.10 - Dysphagia, unspecified Subjective Patient reports: feels better, pain is less, tolerating liquids well, flatus, bowel movement Objective Vital Signs - Last 8 Hours Temp Pulse Resp BP Pulse Ox 09/20/18 07:22 98.2 F 83 15 154/93 99 09/20/18 04:19 98.5 F 91 15 176/98 98 Intake and Output 09/19/18 09/20/18 09/20/18 23:59 07:59 15:59 Intake Total 1600 / 1600 0 / 0 Output Total 200 / 200 1200 / 1200 Balance 1400 / 1400 -1200 / -1200 Intake: IV Fluids 1000 / 1000 0.9 % Sodium Chloride 1,000 ML 1000 / 1000 @ 75 mls/hr IVC .[id number] [facility] Rx #:[id number] Oral 600 / 600 0 / 0 Output: Urine 200 / 200 1200 / 1200 Other: Meal Dinner Clear Stool Size Copious Small Stool Consistency soft soft Stool Color Brown Brown # Bowel Movements 1 1 Weight 69.1 kg Blood Glucose* 96 Patient Weight 09/20/18 23:59 Weight 69.1 kg - General physical appearance well developed, well nourished - Respiratory normal expansion, normal respiratory effort - Cardiovascular Cardiovascular exam: Present: RRR - Abdomen Abdomen: Present: bowel sounds present, soft, non tender - Integumentary no rash - Psychiatric oriented to time, oriented to person, oriented to place - Labs 09/18/18 02:46 09/18/18 02:46 - VTE Deep Vein Thrombosis/Pulmonary Embolism Present on Admission: No Consult Discharge Plan - Plan Referrals: Pushpa Gambino MD [Primary Care Provider] - <Orion Dodson - Last Filed: 09/21/18 10:07> Objective Vital Signs - Last 8 Hours Temp Pulse Resp BP Pulse Ox 09/21/18 06:23 97.8 F 97 15 117/76 97 09/21/18 04:50 98.7 F 88 14 167/89 96 Intake and Output 09/20/18 09/20/18 09/21/18 15:59 23:59 07:59 Intake Total 0 / 0 Balance 0 / 0 Intake: Oral 0 / 0 Other: Meal NPO Percent of Meal Consumed 0% Stool Size Moderate Moderate Stool Consistency soft loose Stool Color Brown Brown # Voids 1 Weight 77.1 kg Blood Glucose* 131 Patient Weight 09/21/18 23:59 Weight 77.1 kg - Labs 09/21/18 04:47 09/21/18 04:47 Diabetes panel 09/21/18 Range/Units 04:47 Sodium 138 (136-145) mEq/L Potassium 3.7 (3.5-5.1) mEq/L Chloride 103 (98-107) mEq/L Carbon Dioxide 27 (23-29) mEq/L BUN 4 L (8-23) mg/dL Creatinine 0.80 (0.70-1.30) mg/dL Glucose 103 (70-105) mg/dL Calcium 8.2 L (8.6-10.3) mg/dL Calcium panel 09/21/18 Range/Units 04:47 Calcium 8.2 L (8.6-10.3) mg/dL Pituitary panel 09/21/18 Range/Units 04:47 Sodium 138 (136-145) mEq/L Potassium 3.7 (3.5-5.1) mEq/L Chloride 103 (98-107) mEq/L Carbon Dioxide 27 (23-29) mEq/L BUN 4 L (8-23) mg/dL Creatinine 0.80 (0.70-1.30) mg/dL Glucose 103 (70-105) mg/dL Calcium 8.2 L (8.6-10.3) mg/dL Adrenal panel 09/21/18 Range/Units 04:47 Sodium 138 (136-145) mEq/L Potassium 3.7 (3.5-5.1) mEq/L Chloride 103 (98-107) mEq/L Carbon Dioxide 27 (23-29) mEq/L BUN 4 L (8-23) mg/dL Creatinine 0.80 (0.70-1.30) mg/dL Glucose 103 (70-105) mg/dL Calcium 8.2 L (8.6-10.3) mg/dL - Attending Attestation I examined this patient and my medical decision-making was reviewed with the Resident Physician. I agree with the documented findings, disposition and treatment plan as described except to the extent set forth below. The patient is seen and evaluated. I personally reviewed the upper GI study. The contrast is delayed however later film showed that the Gabe fundoplication is widely patent. I will start him back on clear liquids. We will try to advance to full liquids and hold him at that diet until the perioperative edema has abated Orion Dodson MD FACS
--- NOTE | 2018-09-20 23:13 | Internal Med Progress Note ---
Hospitalist Progress Note - Encounter Date of Encounter: 09/20/18 Time of Encounter: 19:00 - Subjective Interval History: SUBJECTIVE: The patient had upper GI series today. The study was discontinued early, after we have detected very delayed passage of barium through the Gabe fundoplication wrap. The patient was put on clear liquids and 3 times a day Ensure. He continues to have mid epigastric pain, mild. Denies nausea. He has not experienced vomiting for the last 24 hours. OBJECTIVE: Skin: Free of rash and discoloration. ENMT: Oral/pharyngeal mucosa is normal in appearance. Eyes: Sclera is white. There is no discharge from eyes. Respiratory: Normal breath sounds; no crackles or wheezes. CV: Heart is regular; no gallop or murmur. GI: Abdomen is soft. It is mildly tender in midepigastrium. There is no palpable mass or visceromegaly. Neuro: There is no focal deficits. ADDITIONAL DATA: See results of upper GI series; mentioned above. ASSESSMENT AND PLAN: Esophagitis with dysphagia. He had recently Gabe fundoplication. We stopped IV fluids. We will continue IV Protonix. See notes from general surgery. Severe protein calorie malnutrition. Ensure has been started. He will get high-calorie diet, when his dysphagia is resolved. Hypertension. History of myocardial infarction. He is on scheduled IV Lopressor. COPD. Stable. We restarted his Spiriva. He will continue when necessary albuterol inhalations. - Exam Vitals: Temp Pulse Resp BP Pulse Ox 98.1 F 76 14 148/90 98 09/20/18 19:23 09/20/18 19:23 09/20/18 19:23 09/20/18 19:23 09/20/18 19:23 Exam: xx - Assessment and Plan (1) Esophagitis Current Visit: Yes Status: Acute (2) Dysphagia Current Visit: Yes Status: Acute (3) Severe protein-calorie malnutrition Current Visit: Yes Status: Acute (4) HTN (hypertension) Current Visit: No Status: Chronic (5) COPD (chronic obstructive pulmonary disease) Current Visit: Yes Status: Acute - Time Spent with Patient Total time spent is greater than 50% in coordination of care (as documented) at patient's floor/unit and/or counseling patient: 25 - 35 minutes Plan of Care Discussed with: patient Internal Medicine: Result - Labs CBC & Chem 7: 09/18/18 02:46 09/18/18 02:46 - Impressions Impressions Upper GI Series 09/20/18 11:57 IMPRESSION: Oral contrast flow through the Gabe fundoplication wrap, though delayed in nature. Some contrast flowed immediately through the fundoplication wrap, however the bulk of the contrast administered was quite delayed. I was uncomfortable with further imaging beyond the 1st few swallows over concerns for possible aspiration. D/ / Thor Em MD / Thor Em MD Interpreting Provider: Thor Em MD - VTE Deep Vein Thrombosis/Pulmonary Embolism Present on Admission: No Consult Discharge Plan - Plan Referrals: Pushpa Gambino MD [Primary Care Provider] - (2) Dysphagia Qualifiers: Dysphagia type: esophageal phase Qualified Code(s): R13.10 - Dysphagia, unspecified (4) HTN (hypertension) Qualifiers: Hypertension type: essential hypertension Qualified Code(s): I10 - Essential (primary) hypertension
[2018-09-21] MEDS: *HR* Metoprolol 5 MG/5 ML VIAL IVP SCH ×3 (00:11→13:07)
[2018-09-21 05:26] LABS: Basophils % 0.7 %; Eosinophils # 0.7 K/mcL (0.0-0.6); Eosinophils % 12.2 %; Hematocrit 33.4 % (37.5-50.1); Immature Granulocytes % 0.3 % (0-4); Lymphocytes # 1.8 K/mcL (0.6-4.6); Lymphocytes % 30.5 %; Mean Corpuscular HGB Conc 33.5 g/dL (31.6-35.5); Mean Corpuscular Hemoglobin 27.5 pg (28.0-33.3); Mean Corpuscular Volume 82.1 fL (83.0-100.0); Mean Platelet Volume 8.5 fL (9.4-12.4); Monocytes # 0.6 K/mcL (0.0-1.3); Monocytes % 10.8 %; Neutrophils # 2.7 K/mcL (1.6-8.9); Platelet Count 301 K/mcL (140-400); Red Blood Count 4.07 M/mcL (4.19-5.50); Red Cell Distribution Width 14.8 % (11.5-14.5); Segmented Neutrophils % 45.5 %
[2018-09-21 05:31] LABS: BUN/Creatinine Ratio 5 (6-26); Blood Urea Nitrogen 4 mg/dL (8-23); Calcium 8.2 mg/dL (8.6-10.3); Carbon Dioxide 27 mEq/L (23-29); Chloride 103 mEq/L (98-107); Glucose 103 mg/dL (70-105); Osmolality,Calculated 283 (280-300); Potassium 3.7 mEq/L (3.5-5.1); Sodium 138 mEq/L (136-145); eGFR For Non-African Americans > 60 (> 60)
[2018-09-21 05:32] LABS: Hemoglobin 11.2 g/dL (12.9-16.9)
[2018-09-21] MEDS: *HR* Heparin 5,000 UNIT/ML VIAL SQ SCH (05:40)
[2018-09-21] MEDS: Pantoprazole 40 MG VIAL IVP SCH (09:41)
[2018-09-21] MEDS: Bisacodyl 10 MG RECTAL SUPPOSITORY RC SCH (09:41)
[2018-09-21] MEDS ORDERED: Tiotropium 18 MCG inhalation IH SCH (10:00)
--- NOTE | 2018-09-21 11:15 | Event Note ---
Date of Encounter: 09/21/18 Time of Encounter: 11:13 Event note placed for d/c planning. Patient is tolerating THIN liquid diet. Recommend do NOT advance past FLD. Increase protein supplements to four times daily. Follow up with Dr. Cornell 09/28/2018 at 1050 am - Patient Status Disposition: Still a Patient Condition: Good Functional capacity at discharge: independent ambulation Overall status at discharge: patient is progressing back to baseline - Discharge Instructions Follow Up With: Pushpa Gambino MD [Primary Care Provider] - Saran Cornell DO [Partnered Physician] - 09/28/18 10:50 am Additional Instructions: Do not advance your diet past Thin Liquids (see your previous carlos diet instructions for thin liquids that you are permitted to drink) Consume FOUR protein supplements daily Follow-up with Dr. Cornell - Diet and Activity Activity: increase activity as tolerated Diet: other (see instructions)
--- NOTE | 2018-09-21 11:45 | Discharge Summary ---
- NOTES TO OUTPATIENT PROVIDER Notes to Outpatient Provider: Follow-up with Dr. Pruett. According to general surgery patient can be discharged home with clear liquid diet and diet to be advanced depending on follow-up with Dr. Pruett as outpatient,other chronic medical conditions remained stable Orders not resulted at time of discharge: Pending orders 09/22/18 04:00 Chem 7 [Basic Metabolic Panel] AM 0400 Complete Blood Count [HEME] AM 0400 Date of Encounter: 09/21/18 Time of Encounter: 09:00 - Discharge Diagnosis (1) HTN (hypertension) Priority: Secondary Status: Chronic Qualifiers: Hypertension type: essential hypertension Qualified Code(s): I10 - Essential (primary) hypertension (2) Dysphagia Priority: Primary Status: Acute Qualifiers: Dysphagia type: esophageal phase Qualified Code(s): R13.10 - Dysphagia, unspecified (3) Esophagitis Priority: Primary Status: Acute (4) Severe protein-calorie malnutrition Priority: Primary Status: Acute (5) COPD (chronic obstructive pulmonary disease) Priority: Secondary Status: Chronic Qualifiers: COPD type: unspecified COPD Qualified Code(s): J44.9 - Chronic obstructive pulmonary disease, unspecified Hospital course: Mr. Mansfield is a 83 year old male with PMH of HTN and COPD The patient is an 83-year-old male. He has been fighting with abdominal pain for about 3 months. During that time she lost about 25-30 pounds. He had laparoscopic cholecystectomy on 07/03/2018. Followed by robotic Gabe and hiatal hernia repair on 07/03/2018. He was admitted on 08/24/2018 for possible small bowel obstruction. Subsequently he had EGD/NG tube insertion by surgery. Then, he underwent lysis of adhesions on 08/27 2018. This time, his epigastric pain was mostly in the middle of his epigastrium. It is associated with dysphagia but not nausea and vomiting. Surgery was consulted and patient underwent EGD done by Dr. Delatorre. An extensive swelling of esophagogastric juncture has been found. There was no evidence of obstruction on CAT scan or an EGD. Patient also had upper GI series done 09/20 with evidence of very delayed passage of. Prior to niacin fundoplication wrap, the study was discontinued early. According to surgery, the patient continued to be updated liquid and 4 times a day ensure. He was seen and evaluated this morning, denies new complaints, states abdominal pain is resolved. Surgery had signed out and informed patient that he was stable to be discharged home. His chronic medical conditions including hypertension and COPD was stable and therefore this patient is discharged home presents surgical recommendation. He has an appointment with his primary surgeon Dr. Pruett on 10/05/2018, recommend clear liquid diet until evaluation. The patient verbalized understanding of plan of care. Discharge discussed with: patient, nurse - Time Spent with Patient Total time spent providing and/or coordinating discharge services: Less than 30 minutes - Discharge Medications Prescriptions: Protein Supplement [Ensure High Protein] 1 bottle PO QID 30 Days #120 can Home Medications: Albuterol Sulfate [Albuterol Inhaler] 2 puff IH QID PRN 01/01/18 [History] Aspirin [Adult Aspirin Regimen] 81 mg PO DAILY 01/01/18 [History] Cetirizine HCl [Zyrtec] 10 mg PO DAILY 01/01/18 [History] Ezetimibe/Simvastatin [Vytorin 10-80 mg Tablet] 1 tab PO DAILY 01/01/18 [History] Nitroglycerin [Nitrostat] 0.4 mg SL Q5M PRN 01/01/18 [History] Potassium Chloride [Klor-Con 10] 10 meq PO BID 06/27/18 [History] Tiotropium [Spiriva] 18 mcg IH 0700 06/27/18 [History] Montelukast [Singulair] 10 mg PO DAILY 07/04/18 [History] Tamsulosin HCl [Flomax] 0.4 mg PO DAILY 07/04/18 [History] Metoprolol [Lopressor] 25 mg PO BID 07/14/18 [History] Docusate [Colace] 200 mg PO DAILY #90 capsule 08/28/18 [Rx] Omeprazole [PriLOSEC] 40 mg PO DAILY 09/17/18 [History] Protein Supplement [Ensure High Protein] 1 bottle PO QID 30 Days #120 can 09/21/18 [Rx] Allergies/Adverse Reactions: Allergy/AdvReac Type Severity Reaction Status Date / Time No Known Allergies Allergy Verified 09/17/18 11:52 Date of admission: 09/17/18 15:30 Primary care physician: Pushpa Gambino MD Discharging clinician: Bob Hanks Anticipated date of discharge: 09/21/18 - Constitutional Vitals: Temp Pulse Resp BP Pulse Ox 97.9 F 94 15 149/84 97 09/21/18 10:11 09/21/18 10:11 09/21/18 10:11 09/21/18 10:11 09/21/18 10:11 General appearance: Present: A&O X 3, pleasant, no acute distress, answers questions appropriately Exam: see below - Head Head exam: Present: atraumatic, normocephalic - Eye Eye exam: Present: PERRL, conjuntiva pink, sclera anicteric Pupils: Present: PERRL - Neck Neck exam general surgery: Present: supple, trachea midline. Absent: lymphadenopathy - Respiratory Respiratory exam: Present: CTAB. Absent: accessory muscle use, rales, rhonchi, wheezes - Cardiovascular Cardiovascular exam: Present: RRR, +S1, +S2. Absent: diastolic murmur, gallop, rubs, systolic murmur - GI/Abdominal GI/Abdominal exam: Present: normal bowel sounds, soft, no peritoneal signs. Absent: distended, tenderness - Extremities Exam Extremities exam: Present: warm, radial pulses palpable and symmetrical. Absent: calf tenderness, cyanotic, pedal edema - Neurological Exam Neurological exam: Present: CN II-XII intact, oriented X3, no focal deficits. Absent: pronater drift, facial droop, speech deficit - Skin Skin exam: Present: dry, intact - Patient Status Disposition: Home, Self-Care Condition: Good Functional capacity at discharge: independent ambulation Overall status at discharge: patient is progressing back to baseline - Discharge Instructions Follow Up With: Saran Cornell DO [Partnered Physician] - 10/05/18 10:00 am Pushpa Gambino MD [Primary Care Provider] - Additional Instructions: Do not advance your diet past Thin Liquids (see your previous gabe diet instructions for thin liquids that you are permitted to drink) Consume FOUR protein supplements daily Follow-up with Dr. Cornell - Diet and Activity Activity: resume usual activities as tolerated Diet: other (clear liquid diet only) - VTE Deep Vein Thrombosis/Pulmonary Embolism Present on Admission: No
[2018-09-21 14:19] VITALS: BP 138/88
== END 2018-09-21 14:36 | disposition home or self-care (01) | DRG 391 ==
LOC: SUATTDRO 15:30 → 3ANU 15:30
PROVIDERS: ADMIT Internal Medicine Nephrology; ATTEND Internal Medicine

== ENCOUNTER 2018-10-10 20:20 | Observation (INO) ==
[2018-10-10] MEDS ORDERED: Ondansetron 4 MG/2 ML VIAL IVP PRN (22:15)
[2018-10-10] MEDS ORDERED: Naloxone 0.4 MG/ML INJ IVP PRN (22:15)
[2018-10-10] MEDS ORDERED: Acetaminophen IV 1,000 MG/100 ML INFUS..BTL IVPB PRN (22:19)
[2018-10-10] MEDS ORDERED: Bisacodyl 10 MG RECTAL SUPPOSITORY RC ONE (22:30)
[2018-10-10] MEDS: 0.9 % Sodium Chloride 1,000 ML IVC SCH (22:49)
[2018-10-10] MEDS: Metoclopramide 10 MG/2 ML VIAL IVP SCH (23:53)
[2018-10-10] MEDS: *HR* Metoprolol 5 MG/5 ML VIAL IVP SCH (23:53)
[2018-10-11 05:51] LABS: Basophils # 0.1 K/mcL (0.0-0.2); Basophils % 0.7 %; Eosinophils # 0.7 K/mcL (0.0-0.6); Eosinophils % 8.9 %; Hematocrit 39.1 % (37.5-50.1); Hemoglobin 12.5 g/dL (12.9-16.9); Immature Granulocytes % 0.4 % (0-4); Lymphocytes # 2.7 K/mcL (0.6-4.6); Lymphocytes % 34.9 %; Mean Corpuscular Hemoglobin 27.2 pg (28.0-33.3); Mean Corpuscular Volume 85.2 fL (83.0-100.0); Mean Platelet Volume 8.8 fL (9.4-12.4); Monocytes # 0.8 K/mcL (0.0-1.3); Monocytes % 10.6 %; Neutrophils # 3.4 K/mcL (1.6-8.9); Platelet Count 317 K/mcL (140-400); Red Blood Count 4.59 M/mcL (4.19-5.50); Red Cell Distribution Width 16.4 % (11.5-14.5); Segmented Neutrophils % 44.5 %
[2018-10-11 06:12] LABS: BUN/Creatinine Ratio 15 (6-26); Blood Urea Nitrogen 14 mg/dL (8-23); Calcium 8.6 mg/dL (8.6-10.3); Carbon Dioxide 25 mEq/L (23-29); Chloride 102 mEq/L (98-107); Glucose 98 mg/dL (70-105); Osmolality,Calculated 280 (280-300); Potassium 4.2 mEq/L (3.5-5.1); Sodium 135 mEq/L (136-145); eGFR For Non-African Americans > 60 (> 60)
[2018-10-11] MEDS: *HR* Metoprolol 5 MG/5 ML VIAL IVP SCH ×2 (06:20→11:47)
[2018-10-11] MEDS: Metoclopramide 10 MG/2 ML VIAL IVP SCH ×2 (06:20→11:45)
[2018-10-11] MEDS ORDERED: Pantoprazole 40 MG VIAL IVP SCH (06:30)
[2018-10-11] MEDS: 0.9 % Sodium Chloride 1,000 ML IVC SCH (11:46)
[2018-10-11] MEDS ORDERED: Acetaminophen 325 MG TABLET PO PRN (12:58)
[2018-10-11 14:16] VITALS: BP 156/81
--- NOTE | 2018-10-11 14:24 | General Surg History&Physical ---
Date of Encounter: 10/11/18 Time of Encounter: 14:17 Assessment and Plan (1) Abdominal pain Current Visit: No Status: Acute The assessment and plan as outlined above was discussed with the patient and/or family members who expressed understanding and agreement. All questions were answered. A CT of the abdomen and pelvis was obtained which noted air filled distention with an abrupt transition point in the proximal descending colon favoring functional causes although stricture could not be excluded. REcords for [facility] have been requested for colonoscopy/barium enema results. He was given dulcolax suppository yesterday and reports 3 BMs overnight and resolution of symptoms. He denies abd pain presently. We will try FLD with advance to soft for dinner. If he tolerates, we will plan for d/c in the am. Will add mirlax one dose now and then daily until having BMs that are mashed potatoes consistency, then may decrease to every other day until having daily bowel movements. Stop IVF AMB TID OOB to chair TID Further reccs pending tolerating diet and BMs Qualifiers: Abdominal location: generalized Qualified Code(s): R10.84 - Generalized abdominal pain (2) Constipation by delayed colonic transit Current Visit: Yes Status: Acute The assessment and plan as outlined above was discussed with the patient and/or family members who expressed understanding and agreement. All questions were answered. See above History of Present Illness Chief complaint: abdomoinal pain HPI: Mr. Mansfield is a 83 year old male who is well known to [facility]. His past medical, social, and surgical history's were reviewed per the electronic medical record and updated were indicated. He reports his last colonoscopy was 3 years ago [address] [facility]. He reports having a difficult time completing the colonoscopy due to constipation and eventually did require a barium enema which was negative. Notable surgical procedures include -laparoscopic cholecystectomy (Dr. Delatorre) 07/03/2018 -robotic Marlen fundoplication and hiatal hernia repair (Dr. Cornell) 07/14/2018 -admitted 08/24/2018 for possible small bowel obstruction, NG was placed during endoscopy by Dr. Cornell and noted a large amount of bilious return. -Laparoscopic lysis of adhesions on 08/27/[address] Cornell -admitted on 09/17/2018 for circumferential wall thickening of the distal thoracic esophagus and proximal stomach. An EGD was performed by Dr. Delatorre which noted narrowing at 39 cm from the incisor. Lower esophageal edema. NG tube was placed via EGD. Of note during the return admissions after June, patient has complained about chronic constipation for which he was recommended laxative spent he has not taken them as directed. He presented on 10/10/2018 with complaints of abdominal pain. He stated he had not had a bowel movement since Thursday and had been having difficulty urinating. He felt bloated and distended. He did try milk of magnesia without results. He denies fever, chills, chest pain, nausea, vomiting, black, bloody, or tarry stool, burning with urination, or frequency. He endorses difficulty initiating a urine stream which is his baseline, painful bowel movements, last bowel movement on Thursday. Past Med Surg Social Fam HX - Past Medical History Source: patient, old records reviewed Medical history: asthma, COPD, hyperlipidemia, hypertension, myocardial infarction, other (Chronic constipation, renal lesions) Additional medical history: prostate problems Psychiatric history: no psych history - Past Surgical History Surgical History: cholecystectomy, other Additional surgical history: right foot surgery, prostate reduction. 07/10/18 LIABN. 07/14/18 LAP MARLEN FUNDOPLICATION @[facility] W/DR CORNELL - Social History Smoking Status: Never smoker Smokeless Tobacco Status: No Alcohol use: rarely Drug use: none Occupational status: previously employed Current living situation: Home - Independent Activity Level: Independent ambulation Recent Out of Country Travel Within the Last 8 Weeks: No Exposure or Possible Exposure to Illness During Travel: No Medications and Allergies RX: Albuterol Sulfate [Albuterol Inhaler] 2 puff IH DAILY 01/01/18 [History] RX: Aspirin [Adult Aspirin Regimen] 81 mg PO DAILY 01/01/18 [History] RX: Cetirizine HCl [Zyrtec] 10 mg PO DAILY 01/01/18 [History] RX: Ezetimibe/Simvastatin [Vytorin 10-80 mg Tablet] 1 tab PO DAILY 01/01/18 [History] RX: Nitroglycerin [Nitrostat] 0.4 mg SL Q5M PRN 01/01/18 [History] RX: Potassium Chloride [Klor-Con 10] 10 meq PO DAILY 06/27/18 [History] RX: Tiotropium [Spiriva] 2 puff IH 0700 06/27/18 [History] RX: Montelukast [Singulair] 10 mg PO DAILY 07/04/18 [History] RX: Tamsulosin HCl [Flomax] 0.4 mg PO DAILY 07/04/18 [History] RX: Metoprolol [Lopressor] 25 mg PO BID 07/14/18 [History] RX: Docusate [Colace] 200 mg PO DAILY #90 capsule 08/28/18 [Rx] RX: Omeprazole [PriLOSEC] 40 mg PO DAILY 09/17/18 [History] RX: Protein Supplement [Ensure High Protein] 1 bottle PO QID 30 Days #120 can 09/21/18 [Rx] Allergy/AdvReac Type Severity Reaction Status Date / Time No Known Allergies Allergy Verified 10/11/18 14:13 Review of Systems All systems PM: reviewed and no additional remarkable complaints except as stated All systems PM: The remainder of the systems were reviewed and are negative General Surgery Exam Initial Vital Signs Temp Pulse Resp BP Pulse Ox 98.1 F 69 18 130/76 98 10/10/18 22:17 10/10/18 22:17 10/10/18 22:17 10/10/18 22:17 10/10/18 22:17 - General physical appearance well developed, well nourished, no distress - Respiratory normal expansion, normal respiratory effort, clear to auscultation - Cardiovascular Cardiovascular exam: Present: RRR, 15, 16 - Abdomen Abdomen general surgery: Present: bowel sounds present, soft, non tender - Integumentary Integumentary general surgery: Present: warm and dry, no abnormal pigmentation - Neurologic Present: CN 2-12 grossly intact, normal coordination, normal sensation - Musculoskeletal Present: normal gait, normal posture - Psychiatric Psychiatric general surgery: Present: A&Ox3, appropriate, oriented to person, oriented to place, oriented to time, speech is normal, memory intact Results - Labs 10/11/18 05:31 10/11/18 05:31 Abnormal lab results Hgb 12.5 g/dL (12.9-16.9) L 10/11/18 05:31 MCH 27.2 pg (28.0-33.3) L 10/11/18 05:31 RDW 16.4 % (11.5-14.5) H 10/11/18 05:31 MPV 8.8 fL (9.4-12.4) L 10/11/18 05:31 Eosinophils # 0.7 K/mcL (0.0-0.6) H 10/11/18 05:31 Sodium 135 mEq/L (136-145) L 10/11/18 05:31 Diabetes panel 10/11/18 Range/Units 05:31 Sodium 135 L (136-145) mEq/L Potassium 4.2 (3.5-5.1) mEq/L Chloride 102 (98-107) mEq/L Carbon Dioxide 25 (23-29) mEq/L BUN 14 (8-23) mg/dL Creatinine 0.94 (0.70-1.30) mg/dL Glucose 98 (70-105) mg/dL Calcium 8.6 (8.6-10.3) mg/dL Calcium panel 10/11/18 Range/Units 05:31 Calcium 8.6 (8.6-10.3) mg/dL Pituitary panel 10/11/18 Range/Units 05:31 Sodium 135 L (136-145) mEq/L Potassium 4.2 (3.5-5.1) mEq/L Chloride 102 (98-107) mEq/L Carbon Dioxide 25 (23-29) mEq/L BUN 14 (8-23) mg/dL Creatinine 0.94 (0.70-1.30) mg/dL Glucose 98 (70-105) mg/dL Calcium 8.6 (8.6-10.3) mg/dL Adrenal panel 10/11/18 Range/Units 05:31 Sodium 135 L (136-145) mEq/L Potassium 4.2 (3.5-5.1) mEq/L Chloride 102 (98-107) mEq/L Carbon Dioxide 25 (23-29) mEq/L BUN 14 (8-23) mg/dL Creatinine 0.94 (0.70-1.30) mg/dL Glucose 98 (70-105) mg/dL Calcium 8.6 (8.6-10.3) mg/dL All other labs normal. - Imaging CT scan - abdomen: report reviewed CT scan - pelvis: report reviewed
--- NOTE | 2018-10-11 16:27 | Discharge Summary ---
Date of Encounter: 10/12/18 Time of Encounter: 16:30 - Discharge Diagnosis (1) Abdominal pain Priority: Primary Status: Resolved Comments: Reviewed colonoscopy findings from [facility]. Torturous colon, diverticulosis, non- bleeding hemorrhoids. surgical scare consistent with previous polypectomy Qualifiers: Abdominal location: generalized Qualified Code(s): R10.84 - Generalized abdominal pain (2) Constipation by delayed colonic transit Priority: Secondary Status: Acute Comments: h/o chronic constipation and tortuous colon General Surgery Exam Initial Vital Signs Temp Pulse Resp BP Pulse Ox 98.1 F 69 18 130/76 98 10/10/18 22:17 10/10/18 22:17 10/10/18 22:17 10/10/18 22:17 10/10/18 22:17 - Hospital Course Hospital course: Mr. Mansfield is a 83 year old male who presented on 10/11/2018 with complaints of abdominal pain 2/2 constipation. He was treated with RC laxatinve and noted 3 BMs, resolution of symptoms. Old records were obtained from [facility] which noted a colonoscopy in 2014 with internal hemorrhoids, a torturous colon, previous surgical scar. Of note his 3 recent admissions have been consistent with abdominal pain and constipation. He is recommended to take daily laxatives including Miralax until he is having bowel movements that are mashed potatoes consistency, then decreased to every other day. Follow-up with Dr. Cornell in approximately 4 weeks. - Time Spent with Patient Total time spent providing and/or coordinating discharge services: - Discharge Medications Prescriptions: Polyethylene Glycol 3350 [MiraLAX Powder Bulk 17.9 Oz] 1 scoop PO DAILY 30 Days #510 gm Home Medications: RX: Albuterol Sulfate [Albuterol Inhaler] 2 puff IH DAILY 01/01/18 [History] RX: Aspirin [Adult Aspirin Regimen] 81 mg PO DAILY 01/01/18 [History] RX: Cetirizine HCl [Zyrtec] 10 mg PO DAILY 01/01/18 [History] RX: Ezetimibe/Simvastatin [Vytorin 10-80 mg Tablet] 1 tab PO DAILY 01/01/18 [History] RX: Nitroglycerin [Nitrostat] 0.4 mg SL Q5M PRN 01/01/18 [History] RX: Potassium Chloride [Klor-Con 10] 10 meq PO DAILY 06/27/18 [History] RX: Tiotropium [Spiriva] 2 puff IH 0700 06/27/18 [History] RX: Montelukast [Singulair] 10 mg PO DAILY 07/04/18 [History] RX: Tamsulosin HCl [Flomax] 0.4 mg PO DAILY 07/04/18 [History] RX: Metoprolol [Lopressor] 25 mg PO BID 07/14/18 [History] RX: Docusate [Colace] 200 mg PO DAILY #90 capsule 08/28/18 [Rx] RX: Omeprazole [PriLOSEC] 40 mg PO DAILY 09/17/18 [History] RX: Protein Supplement [Ensure High Protein] 1 bottle PO QID 30 Days #120 can 09/21/18 [Rx] Polyethylene Glycol 3350 [MiraLAX Powder Bulk 17.9 Oz] 1 scoop PO DAILY 30 Days #510 gm 10/11/18 [Rx] Allergies/Adverse Reactions: Allergy/AdvReac Type Severity Reaction Status Date / Time No Known Allergies Allergy Verified 10/11/18 14:13 Date of admission: 10/10/18 22:08 Primary care physician: Pushpa Gambino MD Discharging clinician: Eve Alvarado Anticipated date of discharge: 10/11/18 Labs on day of discharge: Labs from last 24 hours 10/11/18 10/11/18 05:31 05:31 WBC 7.6 RBC 4.59 Hgb 12.5 L Hct 39.1 MCV 85.2 MCH 27.2 L MCHC 32.0 RDW 16.4 H Plt Count 317 MPV 8.8 L Immature Gran % 0.4 Seg Neutrophils % 44.5 Lymphocytes % 34.9 Monocytes % 10.6 Eosinophils % 8.9 Basophils % 0.7 Neutrophils # 3.4 Lymphocytes # 2.7 Monocytes # 0.8 Eosinophils # 0.7 H Basophils # 0.1 Sodium 135 L Potassium 4.2 Chloride 102 Carbon Dioxide 25 BUN 14 Creatinine 0.94 Est GFR ( Amer) > 60 Est GFR (Non-Af Amer) > 60 BUN/Creatinine Ratio 15 Glucose 98 Calculated Osmolality 280 Calcium 8.6 - Patient Status Disposition: Home, Self-Care Condition: Good Functional capacity at discharge: independent ambulation Overall status at discharge: patient is progressing back to baseline - Discharge Instructions Instructions: Constipation (DC), High Fiber Diet (DC) Follow Up With: Pushpa Gambino MD [Primary Care Provider] - Saran Cornell DO [Partnered Physician] - 11/08/18 9:05 am Additional Instructions: Take MiraLAX daily until you're having bowel movements daily that are mashed potatoes consistency. Then decrease MiraLAX to every other day. Eat a high- fiber diet. Ensure you are drinking at least 64 ounces of liquid each day. Follow-up with Dr. Cornell as recommended. - Diet and Activity Activity: increase activity as tolerated Diet: advance to your usual diet
[2018-10-11] MEDS ORDERED: EZETIMIBE PO SCH (18:00)
[2018-10-11] MEDS ORDERED: SIMVASTATIN PO SCH (18:00)
[2018-10-11] MEDS ORDERED: Bisacodyl 10 MG RECTAL SUPPOSITORY RC ONE (19:00)
[2018-10-12] MEDS ORDERED: Tiotropium 18 MCG inhalation IH SCH (07:00)
[2018-10-12] MEDS ORDERED: Aspirin Enteric Coated 81 MG Tablet PO SCH (09:00)
== END 2018-10-11 18:33 | disposition home or self-care (01) ==
LOC: 3ANU → SUATTDRO 22:08
PROVIDERS: ADMIT Surgery; ATTEND Surgery